=== PATIENT | female | born 1950 | race Caucasian/White ===

== ENCOUNTER → 2016-08-02 | Outpatient (CLI) | payer BC ==
[~2016-08-02] MED LIST: ASPI81TA25 PO; CALC-20 PO; HERB LAX PO; LEVO75TA PO; MULTTAB58 PO; PRM625 VA; PSYL48.59 PO; VITAMIN D PO
== END | disposition home or self-care (01) ==
LOC: C.MAMM 14:43
PROVIDERS: ATTEND Physician Assistant Medical
DX: M85.80 Other specified disorders of bone density and structure, unspecified site (principal); M85.832 Other specified disorders of bone density and structure, left forearm

== ENCOUNTER → 2016-09-16 | Outpatient (CLI) | payer BC ==
[~2016-09-16] MED LIST changes: -HERB LAX PO; -PSYL48.59 PO; -VITAMIN D PO
--- NOTE | 2016-09-17 08:09 | MAMMOGRAPHY REPORT ---
BILATERAL DIGITAL SCREENING MAMMOGRAM WITH CAD: 09/16/2016 TECHNIQUE: Current study was also evaluated with a Computer Aided Detection (CAD) system. Bilateral CC and MLO views were obtained. COMPARISON: Comparison is made to exams dated: 08/18/2015 mammogram, 08/14/2014 mammogram, 08/10/2013 m ammogram, 08/07/2012 mammogram, 08/13/2011 ultrasound, and 08/03/2011 mammogram - [facility]. BREAST COMPOSITION: The tissue of both breasts is heterogeneously dense, which may obscure small mas ses. FINDINGS: No suspicious masses, calcifications, or areas of architectural distortion are noted in ei ther breast. There has been no significant interval change compared to prior exams. Scattered bilater al benign-appearing calcifications are not significantly changed. IMPRESSION: ACR BI-RADS CATEGORY 2: BENIGN There is no mammographic evidence of malignancy. A 1 year screening mammogram is recommended. The pa tient will receive written notification of the results. Approximately 10% of breast cancers are not detected with mammography. A negative mammographic report should not delay biopsy if a clinically suggestive mass is present. Monet Bell M.D. /:09/16/2016 16:14:19 Food Production Supervisor: Iliana Gonzalez, [facility] letter sent: Normal 1/2 BI-RADS Code: ACR BI-RADS Category 2: Benign
== END | disposition home or self-care (01) ==
LOC: C.MAMM 15:57
PROVIDERS: ATTEND Obstetrics & Gynecology
DX: Z12.31 Encounter for screening mammogram for malignant neoplasm of breast (principal)

== ENCOUNTER → 2016-12-27 | Outpatient (CLI) | payer BC ==
[~2016-12-27] MED LIST changes: +HERB LAX PO; +PSYL48.59 PO; +VITAMIN D PO
== END | disposition home or self-care (01) ==
LOC: C.PAPS 16:35
PROVIDERS: ATTEND Obstetrics & Gynecology
DX: Z12.4 Encounter for screening for malignant neoplasm of cervix (principal)

== ENCOUNTER → 2016-12-29 | Outpatient (CLI) | payer BC, OTHER ==
[~2016-12-29] VITALS: Ht 160 cm; Wt 59.0 kg
[~2016-12-29] MED LIST changes: +ACETAMINOPHEN 500 MG TAB PO SCH; +BUPIVACAINE 0.25% 30 ML VIAL ONE; +BUPIVACAINE 0.5 % 5 MG/1 ML PF 10ML VIAL ONE; +BUPIVACAINE LIPOSOME 266 MG, BUPIVACAINE/EPINEPHRINE INJ 50 ML, SODIUM CHLORIDE 0.9% PF... INFIL SCH; +CEFAZOLIN 2000MG IV PUSH 10 ML IV SCH; +CHECK SCOPOLAMINE PATCH PLACEMENT SCH; +FAMOTIDINE 20 MG TAB PO SCH; +GABAPENTIN 300 MG CAP PO SCH; +LACTATED RINGER'S 1000ML 1,000 ML IV SCH; +LACTATED RINGER'S 1000ML 500 ML IV SCH; +LACTATED RINGER'S 1000ML IV SCH; +METOCLOPRAMIDE HCL 10 MG TAB PO SCH; +SCOPOLAMINE 1.5 MG TDSY TD SCH; +TRANEXAMIC ACID INJ 1,000 MG in SYRINGE 0 ML IV SCH
[2016-12-29 15:24] VITALS: Ht 160 cm; Wt 59.0 kg
--- NOTE | 2016-12-29 16:12 | PAT Medication Instructions ---
Service Date Dec 29, 2016. Current Home Medication List Aspirin (Aspir-Low), 81 MG PO Q2D Levothyroxine Sodium (Synthroid), 75 MCG PO QAM Multiple Vitamin (Multivitamin), 1 TAB PO Q2D Psyllium (Metamucil), 1 DOSE PO QAM [Herb Lax], 1 TAB PO QAM [Vitamin D], 1 TAB PO Q2D Medication Instructions For Your Scheduled Surgery - Hold the following medications 2 weeks prior to surgery: [Herb Lax], 1 TAB PO QAM - Hold the following medications the morning of surgery: Psyllium (Metamucil), 1 DOSE PO QAM Multiple Vitamin (Multivitamin), 1 TAB PO Q2D [Vitamin D], 1 TAB PO Q2D - Take the following medications the morning of surgery with a sip of water OTHERWISE NOTHING TO EAT OR DRINK AFTER MIDNIGHT: Levothyroxine Sodium (Synthroid), 75 MCG PO QAM Aspirin (Aspir-Low), 81 MG PO Q2D If you have any questions please call us at [phone] or [phone] or [phone]
--- NOTE | 2016-12-29 17:00 | DIAGNOSTIC IMAGING REPORT ---
CHEST PREADMISSION(PA/LAT) HISTORY: 66 years-old Female PAT preoperative exam without acute chest complaints. COMPARISON: None available TECHNIQUE: Frontal and lateral views of the chest FINDINGS: The cardiomediastinal and hilar silhouettes are within normal limits. There is no pneumothorax, pleural effusion, focal airspace consolidation or overt pulmonary edema. Bones of the chest are grossly intact. IMPRESSION: No acute cardiopulmonary process. The above report was generated using voice recognition software. It may contain grammatical, syntax or spelling errors. Electronically signed by: Benny Rodarte M.D. 12/29/2016 4:58 PM Dictated Date/Time: 12/29/2016 4:57 PM
[2016-12-29 17:17] LABS: BASO % 1.4 %; BASO ABS # 0.11 K/uL (0-0.2); EOS % 1.8 %; EOS ABS # 0.14 K/uL (0-0.5); HEMATOCRIT 38.7 % (37-47); HEMOGLOBIN 12.8 g/dL (12.0-16.0); IG# 0.02 K/uL (0.00-0.02); LYMPH % 29.9 %; LYMPH ABS # 2.38 K/uL (1.2-3.4); MEAN CELL VOLUME 90.6 fL (80-100); MEAN CORPUSCULAR HGB CONC 33.1 g/dl (32-36); MEAN PLATELET VOLUME 9.3 fL (7.4-10.4); MONO % 6.9 %; MONO ABS # 0.55 K/uL (0.11-0.59); NEUT % 59.7 %; NEUT ABS # 4.77 K/uL (1.4-6.5); PLATELET COUNT 261 K/uL (130-400); RED CELL DISTRIBUTION WIDTH CV 14.2 % (11.5-14.5); RED CELL DISTRIBUTION WIDTH SD 46.7 fL (36.4-46.3); WHITE BLOOD COUNT 7.97 K/uL (4.8-10.8)
[2016-12-29 17:21] LABS: CALCIUM 9.4 mg/dl (8.5-10.1); CREATININE 0.76 mg/dl (0.60-1.20); POTASSIUM 4.1 mmol/L (3.5-5.1)
--- NOTE | 2017-01-14 09:40 | HISTORY & PHYSICAL EXAMINATION ---
DATE OF ADMISSION: 01/17/2017 CHIEF COMPLAINT: Bilateral knee pain and discomfort, left side greater than right. HISTORY OF PRESENT ILLNESS: 66-year-old female who presents for surgical treatment of his left knee. She has a fairly long history of bilateral knee pain and discomfort, left side greater than right. We have been following for the past 6 years or so. The pain has gradually gotten worse. It is really starting to affect her quality of life. She gets aggravation of her knee where she has difficulty walking for the next day or two. It is fairly global pain throughout the knee. A little bit more than the medial side. It is increased with weightbearing. She has nighttime pain. She would like to have her knee replaced. PAST MEDICAL HISTORY: 1. Irregular heartbeat followed by Dr. Montiel without any intervention warranted. 2. Heart murmur. 3. Hypothyroidism. 4. Arthritis. PAST SURGICAL HISTORY: 1. Tonsillectomy. 2. Cyst removal from her ovary. ALLERGIES: Black rubber mix. CURRENT MEDICATIONS: Synthroid 75 mcg daily. SOCIAL HISTORY: 66-year-old female. She is . Does not smoke. No significant alcohol intake. FAMILY HISTORY: Negative for heart disease, diabetes, or cancer. REVIEW OF SYSTEMS: Negative for diabetes, neurological problems, vascular problems, bleeding disorders. She is on thyroid medicine for hypothyroidism. No history of DVT or PE. PHYSICAL EXAMINATION: GENERAL: Reveals elderly pleasant 66-year-old female. Looks to be in good health. HEENT: Benign. NECK: Supple. No lymphadenopathy. LUNGS: Clear to auscultation. HEART: Has a regular rate and rhythm. ABDOMEN: Soft, nontender, nondistended. EXTREMITIES: Grossly neurovascularly intact except as follows: Examination of the left knee reveals the patient walks with a significant limp on the left side. She has varus alignment to her knee. Moderate size joint effusion. She is tender over the medial joint line. Her knee is pretty stiff with range of motion of 10-15 degrees short of full extension to about 115 degrees of flexion. No instability. No pain with hip motion. X-RAYS: X-rays of the left knee were reviewed. She has advanced left knee DJD. She has complete loss of her medial joint space. She has got tibial femoral subluxation. She has a large cyst in the central aspect of her tibia. ASSESSMENT: 66-year-old female with advanced bilateral knee degenerative joint disease, left side more symptomatic than the right. She has failed conservative and surgical treatment, would like to have her left knee replaced. PLAN: We are going to take her to the operating room and do a left total knee replacement. The risks and benefits of this procedure were explained to the patient including but not limited to DVT, PE, , infection, neurological injury, vascular injury, bleeding problem, pain, limited range of motion, stiffness, failure to relieve her symptoms, incomplete relief of symptoms, need for further surgery in the future, fracture, leg length inequality, nerve palsy, persistent pain, etc. The patient understands and desires to proceed. Informed consent was obtained.
== END | disposition home or self-care (01) ==
LOC: C.LAB 08:00 → EDSTATUS 01-17 13:15
PROVIDERS: ATTEND Orthopaedic Surgery Sports Medicine
DX: I47.1 Supraventricular tachycardia (principal)

== ENCOUNTER → 2017-09-19 | Outpatient (CLI) | payer BC ==
[~2017-09-19] MED LIST changes: -ACETAMINOPHEN 500 MG TAB PO SCH; -BUPIVACAINE 0.25% 30 ML VIAL ONE; -BUPIVACAINE 0.5 % 5 MG/1 ML PF 10ML VIAL ONE; -BUPIVACAINE LIPOSOME 266 MG, BUPIVACAINE/EPINEPHRINE INJ 50 ML, SODIUM CHLORIDE 0.9% PF... INFIL SCH; -CALC-20 PO; -CEFAZOLIN 2000MG IV PUSH 10 ML IV SCH; -CHECK SCOPOLAMINE PATCH PLACEMENT SCH; -FAMOTIDINE 20 MG TAB PO SCH; -GABAPENTIN 300 MG CAP PO SCH; -LACTATED RINGER'S 1000ML 1,000 ML IV SCH; -LACTATED RINGER'S 1000ML 500 ML IV SCH; -LACTATED RINGER'S 1000ML IV SCH; -METOCLOPRAMIDE HCL 10 MG TAB PO SCH; -PRM625 VA; -SCOPOLAMINE 1.5 MG TDSY TD SCH; -TRANEXAMIC ACID INJ 1,000 MG in SYRINGE 0 ML IV SCH
--- NOTE | 2017-09-20 15:23 | MAMMOGRAPHY REPORT ---
BILATERAL DIGITAL SCREENING MAMMOGRAM TOMOSYNTHESIS WITH CAD: 09/19/2017 CLINICAL HISTORY: Routine screening. Patient reported a palpable right breast lump during the screeni ng examination. TECHNIQUE: The study was acquired using full field digital technology and interpreted from soft copy. Breast tomosynthesis in addition to standard 2D mammography was performed. Current study was also ev aluated with a Computer Aided Detection (CAD) system. COMPARISON: Comparison is made to exams dated: 09/16/2016 mammogram, 08/18/2015 mammogram, 08/14/2014 m ammogram, 08/10/2013 mammogram, 08/07/2012 mammogram, and 02/23/2012 mammogram - [facility] nter. BREAST COMPOSITION: The tissue of both breasts is heterogeneously dense, which may obscure small mass es. FINDINGS: The breast parenchymal pattern is similar to prior mammograms. There are a few scattered b enign rim calcifications and minimal vascular calcification in the breasts. A triangular palpable skin marker was placed on the right upper outer breast, denoting the area of pa lpable concern pointed out by the patient. Although there is no new suspicious mass, asymmetry, area of distortion or suspicious calcification in the area of palpable concern, or elsewhere throughout t he remainder of both breasts, standard of care for a new palpable lump is mammogram plus targeted ult rasound and therefore additional targeted right breast ultrasound recommended. IMPRESSION: ACR BI-RADS CATEGORY 0: INCOMPLETE EVALUATION: NEED ADDITIONAL IMAGING EVALUATION 1. Stable bilateral mammograms, without mammographic evidence of malignancy. 2. However, the patient reported a palpable lump in the right upper outer quadrant. Standard of care is mammogram plus targeted ultrasound. Therefore, additional targeted right breast ultrasound is re commended, as some breast cancers may be mammographically occult. The patient will be called to schedule an appointment. Some breast cancers are not detected with mammography. A negative mammographic report should not angie y biopsy if a clinically suggestive mass is present. Eli Hernadez M.D. ay/:09/19/2017 16:52:02 Railroad Operating Engineer: Iliana Gonzalez, [facility] letter sent: Addl Imaging 0 BI-RADS Code: ACR BI-RADS Category 0: Incomplete Evaluation: Need Additional Imaging Evaluation
== END | disposition home or self-care (01) ==
LOC: C.MAMM 15:29
PROVIDERS: ATTEND Obstetrics & Gynecology
DX: Z12.31 Encounter for screening mammogram for malignant neoplasm of breast (principal); N63.11 Unspecified lump in the right breast, upper outer quadrant

== ENCOUNTER → 2017-09-26 | Outpatient (CLI) | payer BC ==
--- NOTE | 2017-09-26 15:12 | MAMMOGRAPHY REPORT ---
ULTRASOUND OF RIGHT BREAST: 09/26/2017 CLINICAL HISTORY: 67-year-old woman describes to right breast lumps. The larger lump, slightly smalle r than the size of a quarter, is located in the 12:00 axis but this feels similar to other lumpiness of the left breast that is chronic. A newer smaller lump slightly larger than the size of the BB is n oted in the 10:00 periareolar right breast. No skin erythema or nipple discharge. Screening mammograp hy performed 09/19/2017 did not demonstrate any new suspicious abnormalities in the right breast. COMPARISON: Comparison is made to exams dated: 09/19/2017 mammogram, 09/16/2016 mammogram, 08/18/2015 m ammogram, 08/14/2014 mammogram, 08/10/2013 mammogram, and 08/07/2012 mammogram - [facility] enter. FINDINGS: Targeted ultrasound was performed in the areas of concern pointed out by the patient in the right breast 10:00 periareolar and 12:00 periareolar regions. On palpation, there is a plateau of d ense tissue in the 12:00 right breast, and a tiny nodular BB sized lump in the 10:00 periareolar righ t breast. Targeted ultrasound performed directly over these areas demonstrates no suspicious solid o r cystic mass. There is mild benign duct ectasia in the 10:00 periareolar and 12:00 axes of the righ t breast. IMPRESSION: ACR BI-RADS CATEGORY 2: BENIGN 1. There is no targeted sonographic evidence of malignancy or other suspicious abnormalities to expl ain the palpable lumps described by the patient, and the 12:00 and 10:00 periareolar axes. Given hermelinda t no mammographic abnormality was detected either, would consider these lumps benign. However, matthew nued clinical follow-up and clinical monitoring is recommended, as biopsy of a clinically suspicious mass should not be precluded by negative imaging. 2. Otherwise recommend routine screening mammography in 1 year.(09/27/2018) These results and recommendations were discussed with the patient at the time of the exam. Eli Hernadez M.D. ay/:09/26/2017 13:34:05 Box Bender: Iliana Gonzalez, [facility] letter sent: Normal 1/2 BI-RADS Code: ACR BI-RADS Category 2: Benign
== END | disposition home or self-care (01) ==
LOC: C.MAMM 13:05
PROVIDERS: ATTEND Obstetrics & Gynecology
DX: R92.8 Other abnormal and inconclusive findings on diagnostic imaging of breast (principal); N63.10 Unspecified lump in the right breast, unspecified quadrant

== ENCOUNTER 2018-08-25 10:07 | Inpatient (IN) ==
--- NOTE | 2018-08-02 15:44 | PAT Medication Instructions ---
Medication Instructions Date of Service August 02, 2018 Continue as directed Herb Lax 1 tab PO DAILY Metamucil 1 tbsp PO BID [place]-3 2 cap PO DAILY Premarin 1 dose VAGINAL UD PRN collagen (bovine) 1 applic TOPICAL DAILY multivitamin 1 tab PO 2XWK Probiotic 1 cap PO DAILY levothyroxine [Synthroid] 75 mcg PO QAM ASK your surgeon for instructions Premarin 1 dose VAGINAL UD PRN STOP taking 2 weeks before surgery (or as soon as possible if surgery is within 2 weeks) [place]-3 2 cap PO DAILY STOP taking 24 hours before surgery collagen (bovine) 1 applic TOPICAL DAILY DO NOT take the morning of surgery Herb Lax 1 tab PO DAILY Metamucil 1 tbsp PO BID multivitamin 1 tab PO 2XWK Probiotic 1 cap PO DAILY Take morning of surgery With a small sip of water, OTHERWISE NOTHING TO EAT OR DRINK AFTER MIDNIGHT: levothyroxine [Synthroid] 75 mcg PO QAM Other Notes If you have any questions please call us at [phone] or [phone] or [phone] or [phone]
--- NOTE | 2018-08-02 15:47 | Anesthesiology Consultation ---
Date of Service August 02, 2018 Assessment & Plan (1) Encounter for pre-operative examination: - S/P colonoscopy: 05/30/18: MAC sedation at [facility] Chart Review Chart Review: Acceptable Risk for Surgery and Patient seen in Pre Admission Testing Teaching & Discussion Pre-Anesthesia Teaching/Discussion Notes: Instructed NPO after midnight before surgery,except medications with 15 cc of water. Medication instructions provided according to the PAT guidelines. History Surgery Operation Date: 08/25/18 08:50 Proposed Procedures p Left Total Knee Replacement - Angel Jennings MD Height/Weight Height: 5 ft 2 in Weight: 57.4 kg Allergies Allergy/AdvReac Type Severity Reaction Status Date / Time azithromycin [From Zithromax] Allergy Severe DIFFICULTY Verified 08/02/18 15:51 WALKING/SPEAKING; HEARD A "HUMMING SOUND" adhesive tape Allergy Mild BandAid - Verified 08/02/18 15:51 PRURITIS bee venom protein (honey bee) Allergy Unknown SWELLING Verified 08/02/18 15:51 diazepam AdvReac Unknown N/V Verified 07/27/18 13:42 Unclassified Drugs Allergy Unknown BLACK Uncoded 08/02/18 15:51 RUBBER MIX- PRURITIS Medications Home Medications Medication Instructions Recorded Confirmed Last Taken Herb Lax 1 tab PO DAILY 03/31/18 07/27/18 Unknown Metamucil 1 tbsp PO BID 03/31/18 07/27/18 07/27/18 [place]-3 2 cap PO DAILY 03/31/18 07/27/18 05/26/18 Premarin 1 dose VAGINAL UD PRN 03/31/18 07/27/18 Unknown collagen (bovine) 1 applic TOPICAL DAILY 03/31/18 07/27/18 05/28/18 multivitamin 1 tab PO 2XWK 03/31/18 07/27/18 05/26/18 Probiotic 1 cap PO DAILY 05/23/18 07/27/18 Unknown levothyroxine [Synthroid] 75 mcg PO QAM 07/27/18 07/27/18 07/27/18 Past Medical History Medical History Constipation Degenerative disc disease Deviated septum Dysphagia CHRONIC, STABLE WITH CERTAIN FOOD TRIGGERS X 10 YEARS Hypothyroidism Osteoarthritis Osteoporosis Salivary gland disturbance OCCASIONAL LEFT SIDED BLOCKAGE; NO CURRENT ISSUES Tinnitus of both ears Exercise / Class Metabolic Activity II 4-5 Yardwork/Stairs/Walk up hill Past Family History Family History Family/Other Family history of diabetes mellitus cousins Aunt Family history of breast cancer Past Surgical History Surgical History History of colonoscopy History of detached retina repair RIGHT EYE History of dilatation and curettage History of ovarian cystectomy History of tonsillectomy History of wisdom tooth extraction Past Anesthesia History No Hx of Anesthesia Complications (EXCEPT PONV) and No Family Hx of Anesthesia Complications History of PONV History of PONV and Hx of Motion Sickness Social History Smoking Status: Never smoker Do You Dip or Chew Tobacco: No Hx Alcohol Use: No Hx Substance Use: No substance use type: does not use Review of Systems Hx of heart racing s/p unremarkable holter report workup per patient; no recent issues. Patient denies chest pain, shortness of breath, dyspnea on exertion, cough, wheezing. Physical Exam Vital Signs VITALS BP 116/70 P 62 TEMP 97.7 SP02 99%RA RESP 16 PHYSICAL Full neck and c-spine range of motion. Full TMJ range of motion. TMD 2.5 finger breaths (small chin) Mallampati Score 3 Dentition: intact, permanent overlays on sides/molars Lungs: clear throughout to auscultation Cardiac: regular rate and rhythm, no murmurs noted Spine: normal Carotid arteries: negative bruit Extremities: no edema Testing Laboratory Results 08/02/18 16:05 08/02/18 16:05 08/02/18 08/02/18 16:05 16:05 PT 10.4 INR 1.0 APTT 23.5 Blood Type O Negative Antibody Screen NEGATIVE Electrocardiogram Date: 08/02/18 SB at 58bpm. NS STA. Chest X-Ray Date: 08/02/18 Atherosclerosis of the aortic arch. No acute cardiopulmonary disease.
[2018-08-02 16:33] LABS: Basophils # (auto) 0.06 K/uL (0-0.2); Basophils % (auto) 0.8 %; Eosinophils # (auto) 0.17 K/uL (0-0.5); Eosinophils % (auto) 2.3 %; Hematocrit (blood only) 40.3 % (37-47); Hemoglobin 13.6 g/dL (12.0-16.0); Immature Granulocytes # (auto) 0.01 K/uL (0.00-0.02); Immature Granulocytes % (auto) 0.1 %; Lymphocytes # (auto) 2.14 K/uL (1.2-3.4); Lymphocytes % (auto) 28.9 %; Mean Corpuscular Hgb Conc 33.7 g/dL (32-36); Mean Platelet Volume 9.8 fL (7.4-10.4); Monocytes # (auto) 0.57 K/uL (0.11-0.59); Monocytes % (auto) 7.7 %; Neutrophils # (auto) 4.46 K/uL (1.4-6.5); Neutrophils % (auto) 60.2 %; Platelet Count 244 K/uL (130-400); RDW Coefficient of Variation 13.3 % (11.5-14.5); RDW Standard Deviation 43.9 fL (36.4-46.3); Red Blood Count 4.48 M/uL (4.2-5.4); White Blood Count 7.41 K/uL (4.8-10.8)
--- NOTE | 2018-08-02 16:34 | XRay Report ---
XR chest Pre-admission PA/Lat CLINICAL HISTORY: 68 years-old Female presenting with preoperative evaluation. TECHNIQUE: PA and lateral views of the chest were obtained. COMPARISON: 12/29/2016. FINDINGS: Atherosclerosis of the aortic arch. Cardiac silhouette normal in size. Pleural parenchymal scarring a t the apices. Lungs and pleural spaces otherwise clear. Degenerative changes of the thoracic spine. U pper abdomen normal. IMPRESSION: 1. No acute cardiopulmonary disease. Electronically signed by: Barney Perales M.D. 08/02/2018 4:33 PM
[2018-08-02 16:41] LABS: BUN Creatinine Ratio 36.6 (10-20); Calcium 9.6 mg/dl (8.5-10.1); Creatinine Clr Calc Pharmacy 59.1 ml/min; Est GFR (African American) 98.8; Est GFR (Non-African American) 85.2; Potassium 4.3 mmol/L (3.5-5.1)
[2018-08-02 16:51] LABS: Partial Thromboplastin Ratio 0.9; Partial Thromboplastin Time 23.5 Seconds (21.0-31.0); Prothrombin Time 10.4 Seconds (9.0-12.0)
--- NOTE | 2018-08-19 20:27 | History and Physical Report ---
DATE OF ADMISSION: CHIEF COMPLAINT: Bilateral knee pain and discomfort, left side greater than the right. HISTORY OF PRESENT ILLNESS: This patient is a 68-year-old white female who presents for surgical treatment of her left knee. She actually scheduled her left knee for about a year and a half ago, but had to cancel. She apparently got some degree of pneumonia per her report. The knee has been bothering her for quite some time. It has been bothering her for at least the past 8 years. She has gotten more debilitating over time. It is global pain. She has a limited walking tolerance. Both knees hurt, but the left knee is worse than the right. She has difficulty going up and down steps. She has become less active as a result of pain. She has got all conservative treatment and would like to proceed with left knee replacement. PAST MEDICAL HISTORY: Significant for, 1. Elevated cholesterol. 2. Heart murmur. 3. Occasional irregular heartbeat. 4. Hypothyroidism. 5. Neck and back pain. PAST SURGICAL HISTORY: Includes, 1. Tonsillectomy. 2. Cyst removed from her ovary. ALLERGIES: VALIUM AND Z-JA. CURRENT MEDICINES: Include, 1. Synthroid - once a day. 2. Metamucil 3 times a day. SOCIAL HISTORY: This patient is a 68-year-old female. She is . Does not smoke. No history of alcohol intake. FAMILY HISTORY: Negative for heart disease, diabetes and cancer. REVIEW OF SYSTEMS: Negative for diabetes, neurologic problems, vascular problems or bleeding disorders. Denies any chest pain or shortness of breath. She does have some anxiety issues. PHYSICAL EXAMINATION: GENERAL: Reveals a thin, pleasant, middle-aged female. HEENT: Benign. NECK: Supple. No lymphadenopathy. LUNGS: Clear to auscultation. HEART: Regular rate and rhythm. ABDOMEN: Soft, nontender and nondistended. EXTREMITIES: Grossly neurovascularly intact except as follows: Examination of both lower extremities reveals the patient ambulates independently. She has gotten varus alignment to both knees. With weightbearing, she has a varus thrust bilaterally. Examination of left knee reveals tenderness from the medial joint line. Range of motion about 10 degrees short of full extension and 110 degrees of flexion. There is no instability. No pain with hip motion. Examination of the right knee reveals varus deformity. She has a varus thrust. She is tender over the medial joint line with bony hypertrophy. Range of motion of 10-110. No instability. She is neurologically intact. X-RAYS: X-rays of both knees reveal advanced bilateral knee DJD. X-rays of left knee specifically showed advanced complete loss of her medial joint space. She has subchondral sclerosis. She has some tibial femoral subluxation. Less severe degenerative changes on the right side. ASSESSMENT: This patient is a 68-year-old female with advanced bilateral knee degenerative joint disease. The left side is a bit worse than right. She has failed conservative treatment. She would like to proceed with left knee replacement. PLAN: We are going to take her to the operating room and do a left total knee replacement. The risks and benefits of this procedure were explained to the patient including but not limited to deep venous thrombosis, pulmonary embolism, , infection, neurological injury, vascular injury, bleeding problem, pain, limited range of motion, stiffness, failure to relieve symptoms, incomplete relief of symptoms, need for further surgery in future, fracture, leg length inequality, nerve palsy, etc. The patient understands. Informed consent obtained. As far as discharge plans, she is planning to be discharged to home using [facility] home health program. ABDULKADIR
[~2018-08-25 10:07] MED LIST changes: +ACETAMINOPHEN 500 MG TAB PO SCH; -ASPI81TA25 PO; +BUPIVACAINE 0.5 % 5 MG/1 ML PF 10ML VIAL ONE; +BUPIVACAINE LIPOSOME/PF 266 MG, BUPIVACAINE/EPINEPHRINE 50 ML, SODIUM CHLORIDE 0.9% 30 ... INFIL SCH; +CEFAZOLIN 2000MG 2,000 MG/15 ML SYR IV SCH; +FAMOTIDINE 20 MG TAB PO SCH; +GABAPENTIN 300 MG CAP PO SCH; -HERB LAX PO; -LEVO75TA PO; +LR 500ML BOLUS, THEN 15ML/HR IV SCH; +LR 60ML/HR IV SCH; +METOCLOPRAMIDE HCL 10 MG TABLET PO SCH; -MULTTAB58 PO; -PSYL48.59 PO; +ROPIVACAINE 0.5% 5 MG/ML 30 ML VIAL ONE; +SCOPOLAMINE 1.5 MG TDSY TD SCH; +TRANEXAMIC ACID 1,000 MG **IV Intra-op IV SCH; -VITAMIN D PO
--- NOTE | 2018-08-25 10:48 | History & Physical Bridge Note ---
Date of Service August 25, 2018 History & Physical Bridge Note I have examined the patient, reviewed the History & Physical and in the interval since the performance of the History & Physical I have noted the following changes of clinical significance: no changes noted
[2018-08-25] MEDS ORDERED: PROPOFOL IV EMULSION 10 MG/ML 20 ML VIAL IV ONE ×2 (10:54→14:43)
[2018-08-25] MEDS ORDERED: fentaNYL citrate 100 MCG/2 ML VIAL ONE (10:54)
[2018-08-25] MEDS ORDERED: MIDAZOLAM HCL 1 MG/ML 2ML VIAL ONE ×2 (10:54)
[2018-08-25] MEDS ORDERED: LIDOCAINE HCL 2% 2 ML VIAL/AMP(20MG/ML) INFIL ONE (10:54)
[2018-08-25] MEDS ORDERED: ONDANSETRON INJ 2 MG/ML 2 ML VIAL ONE (10:54)
[2018-08-25] MEDS ORDERED: DEXAMETHASONE SOD INJ 4 MG/ML VIAL ONE (10:54)
[2018-08-25] MEDS ORDERED: SODIUM CHLORIDE 0.9% PF 50 ML VIAL ONE (11:16)
[2018-08-25] MEDS ORDERED: BUPIVACAINE 0.25% 30 ML VIAL ONE (11:17)
[2018-08-25] MEDS ORDERED: BUPIVACAINE LIPOSOME 1.3% 266 MG/20 ML VIAL ONE (11:17)
[2018-08-25] MEDS ORDERED: BACITRACIN INJ 50,000 UNIT VIAL ONE (11:17)
[2018-08-25] MEDS ORDERED: EPINEPHrine INJ 1 MG/ML AMP ONE (11:17)
[2018-08-25] MEDS ORDERED: ePHEDrine sulfate 50 MG/ML AMP IV PRN (11:46)
[2018-08-25] MEDS ORDERED: ONDANSETRON INJ 2 MG/ML 2 ML VIAL IV PRN ×2 (11:46→15:21)
[2018-08-25] MEDS ORDERED: KETOROLAC 30 MG/ML VIAL IV PRN (11:46)
[2018-08-25] MEDS ORDERED: ATROPINE SULFATE 0.1 MG/ML 10ML SYR IV PRN (11:46)
[2018-08-25] MEDS ORDERED: PHENYLEPHRINE 100MCG/ML 5ML SYR IV PRN (11:46)
[2018-08-25] MEDS ORDERED: HYDROmorphone INJ 1 MG/ML SYRINGE IV PRN (11:46)
--- NOTE | 2018-08-25 14:30 | Post Operative Brief Note ---
Immediate Post Op Note v1 Date of Surgery August 25, 2018 Pre & Post Diagnosis Operation Date: 08/25/18 12:30 Pre-Op Diagnosis: LEFT KNEE DEGENERATIVE JOINT DISEASE W/KNEE PAIN Post-Op Diagnosis: LEFT KNEE DEGENERATIVE JOINT DISEASE W/KNEE PAIN Procedure Operation Date: 08/25/18 12:30 Actual Procedures p Left Total Knee Replacement(Left) - Angel Jennings MD Surgeon Angel Jennings MD Multifocal Lens Assembler Tracey, PAC Estimated Blood Loss 50 Findings Consistent with Post-Op Diagnosis Fluids 2000 cc Specimens Left Knee Drains Kwong Catheter Complications none Disposition Accompanied Patient To Recovery: No Disposition: Recovery Room
--- NOTE | 2018-08-25 14:53 | XRay Report ---
XR knee LT 2V routine CLINICAL HISTORY: Postoperative evaluation. COMPARISON: Left knee radiographs July 20, 2018. FINDINGS: Alignment of the total left knee arthroplasty is anatomic. There is no fracture or unexpec michael radiopaque foreign body. There are skin cornel. IMPRESSION: Expected findings following total left knee arthroplasty. Electronically signed by: Curtis Joyce M.D. 08/25/2018 2:51 PM
--- NOTE | 2018-08-25 15:14 | Anesthesiology Progress Note ---
Date of Service August 25, 2018 Anesthesia Post Procedure Vital Signs Vital Signs: Temp Pulse Resp BP Pulse Ox 08/25/18 15:10 36.4 C L 61 16 95/52 L 99 08/25/18 15:00 68 16 100/54 L 99 08/25/18 14:50 64 16 88/45 L 100 08/25/18 14:40 36.2 C L 70 16 90/49 L 100 08/25/18 10:47 36.5 C 74 18 116/53 L 98 08/25/18 10:17 36.5 C 74 18 116/53 L 98 Transfer of Care Handoff Completed per policy Notes Mental Status: alert / awake / arousable and participated in evaluation Patient Amnestic to Procedure: Yes Nausea / Vomiting: adequately controlled Pain: adequately controlled Airway Patency, RR, SpO2: stable & adequate BP & HR: stable & adequate Hydration State: stable & adequate Anesthetic Complications: no major complications apparent and Pt Satisfied with anesthetic care
[2018-08-25] MEDS ORDERED: METOCLOPRAMIDE HCL INJ 5 MG/ML 2 ML VIAL IV PRN (15:21)
[2018-08-25] MEDS ORDERED: MULTIVITAMIN TAB PO SCH (15:21)
[2018-08-25] MEDS ORDERED: OXYCODONE HCL IR 5 MG TAB (IMMEDIATE RELEASE) PO PRN (15:21)
[2018-08-25] MEDS ORDERED: MAGNESIUM HYDROXIDE SUSP 30 ML UDC PO PRN (15:21)
[2018-08-25] MEDS ORDERED: HYDROmorphone INJ 0.5 MG/0.5 ML SYR IV PRN (15:21)
[2018-08-25] MEDS ORDERED: ALUMINUM/MAGNESIUM SUSP 30 ML UDC PO PRN (15:21)
[2018-08-25] MEDS ORDERED: BISACODYL 10 MG SUPP PR PRN (15:21)
[2018-08-25] MEDS ORDERED: NALOXONE HCL 0.4 MG/1 ML VIAL/CARP IV PRN (15:21)
[2018-08-25] MEDS ORDERED: PREMARIN VAG CRM 14 APPLN/30 GM TUBE PV PRN (15:21)
[2018-08-25] MEDS ORDERED: SODIUM CHLORIDE 0.9% 1000ML 1,000 ML IV SCH (15:30)
[2018-08-25] MEDS: CHECK SCOPOLAMINE PATCH PLACEMENT SCH ×2 (15:44→23:50)
[2018-08-25] MEDS: KETOROLAC TROMETHAMINE 15 MG/ML VIAL IV SCH ×2 (15:44→21:53)
[2018-08-25] MEDS: ASCORBIC ACID 500 MG TAB PO SCH (17:49)
[2018-08-25] MEDS: FERROUS GLUCONATE 324 MG TAB PO SCH (17:49)
[2018-08-25] MEDS ORDERED: TRANEXAMIC ACID 1,000 MG in 0.9 % SODIUM CHLORIDE 100 ML IV SCH (20:30)
[2018-08-25] MEDS ORDERED: TAPENTADOL HCL ER 50 MG TABCR PO SCH (21:00)
[2018-08-25] MEDS: SENNA 8.6 MG TAB PO SCH (21:52)
[2018-08-25] MEDS: CEFAZOLIN 1000MG 1,000 MG/7.5 ML SYR IV SCH (21:52)
[2018-08-25] MEDS: DOCUSATE SODIUM 100 MG CAP PO SCH (21:52)
[2018-08-25] MEDS: ASPIRIN 81 MG ECTAB PO SCH (21:52)
[2018-08-25] MEDS: ACETAMINOPHEN 500 MG TAB PO SCH (21:53)
[2018-08-25] MEDS: PSYLLIUM 58.6% POWDER PACKET PO SCH (21:53)
[2018-08-26] MEDS ORDERED: NALOXONE HCL 0.4 MG/1 ML VIAL/CARP IV STA (03:20)
[2018-08-26] MEDS ORDERED: SODIUM CHLORIDE 0.9% 1000ML 1,000 ML IV ONE (03:20)
[2018-08-26] MEDS ORDERED: ATROPINE SULFATE 0.1 MG/ML 10ML SYR IV STA (03:23)
[2018-08-26 03:57] LABS: Basophils # (auto) 0.03 K/uL (0-0.2); Basophils % (auto) 0.3 %; Eosinophils # (auto) 0.02 K/uL (0-0.5); Eosinophils % (auto) 0.2 %; Hematocrit (blood only) 31.2 % (37-47); Hemoglobin 10.4 g/dL (12.0-16.0); Immature Granulocytes # (auto) 0.01 K/uL (0.00-0.02); Immature Granulocytes % (auto) 0.1 %; Lymphocytes # (auto) 1.38 K/uL (1.2-3.4); Lymphocytes % (auto) 15.5 %; Mean Corpuscular Hgb Conc 33.3 g/dL (32-36); Mean Corpuscular Volume 89.7 fL (80-100); Mean Platelet Volume 9.8 fL (7.4-10.4); Monocytes # (auto) 0.72 K/uL (0.11-0.59); Monocytes % (auto) 8.1 %; Neutrophils # (auto) 6.75 K/uL (1.4-6.5); Neutrophils % (auto) 75.8 %; Platelet Count 180 K/uL (130-400); RDW Coefficient of Variation 13.4 % (11.5-14.5); RDW Standard Deviation 43.8 fL (36.4-46.3); Red Blood Count 3.48 M/uL (4.2-5.4); White Blood Count 8.91 K/uL (4.8-10.8)
[2018-08-26 04:09] LABS: Partial Thromboplastin Ratio 0.9; Partial Thromboplastin Time 24.4 Seconds (21.0-31.0)
[2018-08-26 04:14] LABS: Albumin Level 2.7 gm/dl (3.4-5.0); BUN Creatinine Ratio 17.2 (10-20); Calcium 8.2 mg/dl (8.5-10.1); Creatinine Clr Calc Pharmacy 65.4 ml/min; Est GFR (African American) 105.9; Est GFR (Non-African American) 91.4; Potassium 4.1 mmol/L (3.5-5.1)
[2018-08-26 04:25] LABS: Bilirubin,Total 0.3 mg/dl (0.2-1); Globulin 2.7 gm/dl (2.5-4.0); Total Protein 5.4 gm/dl (6.4-8.2)
[2018-08-26] MEDS: KETOROLAC TROMETHAMINE 15 MG/ML VIAL IV SCH ×4 (04:36→21:28)
[2018-08-26] MEDS: ACETAMINOPHEN 500 MG TAB PO SCH ×3 (05:23→21:28)
[2018-08-26] MEDS: CEFAZOLIN 1000MG 1,000 MG/7.5 ML SYR IV SCH (05:24)
--- NOTE | 2018-08-26 05:52 | Hospitalist Consultation ---
Date of Consultation August 26, 2018 Assessment & Plan (1) Hypotension: Final Assessment and Recommendations as follows : Hypotension likely secondary to symptomatic bradycardia likely secondary to medications ([id number] Tapentadol in an opioid alex patient, Scopolamine) improved hemodynamic, neurolologic status after fluid bolus, IV Atropine, Narcan administration; Scopolamine patch removal) Rule out primary arrhythmia pathology (hx irregular heartbeat as per records requiring Holter monitoring in the past) Rule out valvular pathology (hx heart murmur as per records) Hypothyroidism, euthyroid as of today's TSH Postop anemia PCU transfer to monitor for arrhythmias Appropriate to hold [id number] Tapentadol, cautious PRN narcotic administration TTE RE bradycardia Atropine as needed for symptomatic bradycardia Trend H&H, transfuse PRBC if hemoglobin less than 7 and/or for symptomatic anemia Case discussed with Dr. Haddad who is in agreement with the plan of care. Total critical time was 40 minutes. Thank you very much for this consultation. Dr. Andrew will follow patient's progress. History of Present Illness Reason for Consultation: Hypotension, bradycardia Requesting Physician: Dr. Haddad Attending Physician: Angel Jennings MD History of Present Illness PCP : Dr. Milagro Gusman History obtained from patient and records. Medical history significant for occasional irregular heartbeat as per records, history of mitral valve disorder as per records hyperlipidemia, hypothyroidism, osteoarthritis. Patient underwent elective left knee surgery for arthritis yesterday. Tolerable postop pain. Episodic bradycardia, CR 50s yesterday afternoon. SBP noted to be 80s after midnight despite ongoing IVF. Cardiac rate 45 at the lowest around 3 AM. Patient noted to be drowsy and disoriented by RN. Both lower extremities noted to be weak. SBP 123/68, pulse rate 65, improved mentation, motor activity following fluid bolus, IV Atropine, Narcan administration and removal of Scopolamine patch. Patient currently more awake, feels much better. Distressed about swallowing difficulty with dry mouth, throat. Admits to feeling somewhat confused, talking funny. Patient denies chest pain, S OB. Medical History as above Surgical History : Tonsillectomy adenoidectomy, knee surgery, eye surgery, vaginal cyst removal Family History : Heart disease, diabetes, breast cancer, thyroid disease Personal/Social history : Non-smoker, no EtOH intake, retired [employer] employee Allergies Allergy/AdvReac Type Severity Reaction Status Date / Time azithromycin [From Zithromax] Allergy Severe DIFFICULTY Verified 08/25/18 10:55 WALKING/SPEAKING; HEARD A "HUMMING SOUND" adhesive tape Allergy Mild BandAid - Verified 08/25/18 10:55 PRURITIS bee venom protein (honey bee) Allergy Unknown SWELLING Verified 08/25/18 10:55 diazepam AdvReac Unknown N/V Verified 08/25/18 10:55 Unclassified Drugs Allergy Unknown BLACK Uncoded 08/02/18 15:51 RUBBER MIX- PRURITIS Home Medications Home Medications Medication Instructions Recorded Confirmed Type Herb Lax 1 tab PO DAILY 03/31/18 08/25/18 History Metamucil 1 tbsp PO BID 03/31/18 07/27/18 History [facility]-3 2 cap PO DAILY 03/31/18 08/25/18 History Premarin 1 dose VAGINAL UD PRN 03/31/18 08/25/18 History collagen (bovine) 1 applic TOPICAL DAILY 03/31/18 08/25/18 History multivitamin 1 tab PO 2XWK 03/31/18 08/25/18 History Probiotic 1 cap PO DAILY 05/23/18 08/25/18 History levothyroxine [Synthroid] 75 mcg PO QAM 07/27/18 07/27/18 History acetaminophen [Tylenol Extra 1,000 mg PO Q8 30 Days #180 tab 08/25/18 Rx Strength] aspirin [Ecotrin Low Strength] 81 mg PO BID 45 Days #90 tab 08/25/18 Rx ferrous gluconate 324 mg PO BIDM 30 Days #60 tab 08/25/18 Rx tramadol 50 mg PO Q6H PRN #15 tab 08/27/18 Rx Patient History Medical History Constipation Degenerative disc disease Deviated septum Dysphagia CHRONIC, STABLE WITH CERTAIN FOOD TRIGGERS X 10 YEARS Hypothyroidism Osteoarthritis Osteoporosis Salivary gland disturbance OCCASIONAL LEFT SIDED BLOCKAGE; NO CURRENT ISSUES Tinnitus of both ears Surgical History History of colonoscopy History of detached retina repair RIGHT EYE History of dilatation and curettage History of ovarian cystectomy History of tonsillectomy History of wisdom tooth extraction Family History Family/Other Family history of diabetes mellitus cousins Aunt Family history of breast cancer Social History Preferred Language: Swedish Communication Ability: Effective Chief Investigator Required: No Beliefs That Will Affect Care: Anabaptism Anabaptism Beliefs: PRESYBETERIAN Current Living Situation: Spouse Other Information That Helps Us Care for You: No Feels Safe at Home: Yes Smoking Status: Never smoker Do You Dip or Chew Tobacco: No Second Hand Exposure: No Hx Alcohol Use: No Hx Substance Use: No Review of Systems Review of Systems: As per HPI, all 10 systems reviewed, all other ROS negative Physical Exam Physical Exam: GENERAL: Slightly anxious, occasional stuttering, occasional slowed response to questions, looks younger for stated age, no respiratory distress SKIN: Pallor, warm HEENT: Pale palpebral conjunctivae, no ptosis, dry buccal mucosa NECK : Supple, no tenderness CHEST : CTA, no tenderness HEART : Bradycardic, no obvious murmurs ABDOMEN: Soft, nontender EXTREMITIES : Dressing on the LLE, no other conspicuous deformities noted NEUROLOGIC : Coherent, occasional slowed response to questions, no facial asymmetry, gait and stance not assessed Results & Data Vital Signs (Past 12 Hours) Vital Signs Temp Pulse Pulse Resp BP BP Pulse Ox 08/26/18 04:10 65 123/68 100 08/26/18 02:49 90/48 L 08/26/18 02:46 36.6 C 46 L 14 80/48 L 95 08/25/18 23:43 36.5 C 56 L 12 84/47 L 85/48 L 97 08/25/18 18:20 36.2 C L 16 105/62 95 Laboratory Results Laboratory Results WBC 8.91 K/uL (4.8-10.8) 08/26/18 03:48 RBC 3.48 M/uL (4.2-5.4) L 08/26/18 03:48 Hgb 10.4 g/dL (12.0-16.0) L 08/26/18 03:48 Hct 31.2 % (37-47) L 08/26/18 03:48 MCV 89.7 fL (80-100) 08/26/18 03:48 MCH 29.9 pg (25-34) 08/26/18 03:48 MCHC 33.3 g/dL (32-36) 08/26/18 03:48 RDW Std Deviation 43.8 fL (36.4-46.3) 08/26/18 03:48 RDW Coeff of Kalee 13.4 % (11.5-14.5) 08/26/18 03:48 Plt Count 180 K/uL (130-400) 08/26/18 03:48 MPV 9.8 fL (7.4-10.4) 08/26/18 03:48 Immature Gran % (Auto) 0.1 % 08/26/18 03:48 Neut % (Auto) 75.8 % 08/26/18 03:48 Lymph % (Auto) 15.5 % 08/26/18 03:48 [place] % (Auto) 8.1 % 08/26/18 03:48 Eos % (Auto) 0.2 % 08/26/18 03:48 Baso % (Auto) 0.3 % 08/26/18 03:48 Immature Gran # (Auto) 0.01 K/uL (0.00-0.02) 08/26/18 03:48 Neut # (Auto) 6.75 K/uL (1.4-6.5) H 08/26/18 03:48 Lymph # (Auto) 1.38 K/uL (1.2-3.4) 08/26/18 03:48 [place] # (Auto) 0.72 K/uL (0.11-0.59) H 08/26/18 03:48 Eos # (Auto) 0.02 K/uL (0-0.5) 08/26/18 03:48 Baso # (Auto) 0.03 K/uL (0-0.2) 08/26/18 03:48 PT 10.4 Seconds (9.0-12.0) 08/02/18 16:05 INR 1.0 (0.9-1.1) 08/02/18 16:05 APTT 24.4 Seconds (21.0-31.0) 08/26/18 03:48 PTT Ratio 0.9 08/26/18 03:48 Sodium 141 mmol/L (136-145) 08/26/18 03:48 Potassium 4.1 mmol/L (3.5-5.1) 08/26/18 03:48 Chloride 111 mmol/L (98-107) H 08/26/18 03:48 Carbon Dioxide 26 mmol/L (21-32) 08/26/18 03:48 Anion Gap 4.0 (3-11) 08/26/18 03:48 BUN 11 mg/dl (7-18) 08/26/18 03:48 Creatinine 0.66 mg/dl (0.6-1.2) 08/26/18 03:48 Est Cr Clr Drug Dosing 65.4 ml/min 08/26/18 03:48 Est GFR ( Amer) 105.9 08/26/18 03:48 Est GFR (Non-Af Amer) 91.4 08/26/18 03:48 BUN/Creatinine Ratio 17.2 (10-20) 08/26/18 03:48 Glucose 88 mg/dl (70-99) 08/26/18 03:48 POC Glucose 91 (70-99) 08/26/18 03:32 Lactate 0.7 mmol/L (0.4-2.0) 08/26/18 03:48 Calcium 8.2 mg/dl (8.5-10.1) L 08/26/18 03:48 Magnesium 2.0 mg/dl (1.8-2.4) 08/26/18 03:48 Total Bilirubin 0.3 mg/dl (0.2-1) 08/26/18 03:48 AST 16 U/L (15-37) 08/26/18 03:48 ALT 15 U/L (12-78) 08/26/18 03:48 Alkaline Phosphatase 67 U/L (45-117) 08/26/18 03:48 Total Protein 5.4 gm/dl (6.4-8.2) L 08/26/18 03:48 Albumin 2.7 gm/dl (3.4-5.0) L 08/26/18 03:48 Globulin 2.7 gm/dl (2.5-4.0) 08/26/18 03:48 Albumin/Globulin Ratio 1.0 (0.9-2) 08/26/18 03:48 TSH 0.662 uIu/ml (0.300-4.500) 08/26/18 03:48 Blood Type O Negative 08/02/18 16:05 Antibody Screen NEGATIVE 08/02/18 16:05 Diagnostic Findings EKG as per my interpretation rate 45, sinus bradycardia, diffuse T wave flattening
[2018-08-26] MEDS ORDERED: ATROPINE SULFATE 0.1 MG/ML 10ML SYR IV PRN (07:13)
[2018-08-26] MEDS ORDERED: PROMETHAZINE HCL 12.5 MG in SODIUM CHLORIDE 0.9% 50 ML IV PRN (07:13)
[2018-08-26] MEDS ORDERED: ACETAMINOPHEN 325 MG TAB PO PRN (07:13)
[2018-08-26] MEDS ORDERED: LACTATED RINGER'S 1,000 ML IV ONE (07:13)
[2018-08-26] MEDS: LACTOBACILLUS ACIDOPHILUS (FLORANEX) TAB PO SCH (08:00)
[2018-08-26] MEDS: DOCUSATE SODIUM 100 MG CAP PO SCH ×2 (08:00→21:28)
[2018-08-26] MEDS: ASCORBIC ACID 500 MG TAB PO SCH ×2 (08:00→17:29)
[2018-08-26] MEDS: FERROUS GLUCONATE 324 MG TAB PO SCH ×2 (08:00→17:29)
[2018-08-26] MEDS: PSYLLIUM 58.6% POWDER PACKET PO SCH ×2 (08:00→21:22)
[2018-08-26] MEDS: MULTIVITAMIN TAB PO SCH (08:00)
[2018-08-26] MEDS: ASPIRIN 81 MG ECTAB PO SCH ×2 (08:00→21:23)
[2018-08-26] MEDS: OMEGA-3 (PURIFIED FISH OIL) 1 GM CAP PO SCH (08:01)
[2018-08-26] MEDS: LEVOTHYROXINE SODIUM 75 MCG TABLET PO SCH (08:01)
--- NOTE | 2018-08-26 08:49 | Progress Note ---
DATE: 08/26/2018 SUBJECTIVE: A 68-year-old white female postop day 1 from a left knee replacement. She is sent down to PCU for some hypotension and bradycardia. She is doing well. Some mild knee pain. Not having any symptoms. No chest pain, no shortness of breath. Her leg is just kind of really waking up. She says the block took a long time to wear off. OBJECTIVE: VITAL SIGNS: Temperature 36.8. Vital signs are stable. Pulse 56. Blood pressure 90/45. GENERAL: Reveals a pleasant, middle-aged female. She is sitting up in bed and looks completely awake, alert, oriented and appropriate. EXTREMITIES: Examination of the left leg reveals the leg to be well aligned. Dressing is clean, dry and intact. She can dorsiflex and plantarflex her foot appropriately. She still says she has some subjective numbness on the medial side of the leg. Her neurovascular status is intact. LABORATORIES: Hemoglobin 10.4. Hematocrit 31.2. Electrolytes are stable. EKG shows sinus bradycardia. ASSESSMENT: A 68-year-old white female postoperative day 1 from a left knee replacement, doing pretty well. She was sent down to PCU for some hypotension, bradycardia. She is completely asymptomatic. EKG is not much different, although her heart rate is a bit slow. They did give her some Narcan on the floor. Her pain is controlled. She is neurologically intact. She is alert and appropriate and without any symptoms. PLAN: 1. DVT prophylaxis including thigh-high TEDs, SCDs, and aspirin twice a day. 2. PT/OT. Weight bear as tolerated. Left total knee protocol. 3. Pain control. We are going to have to be careful with pain meds. We will treat her as needed, but stick to Tylenol and Toradol as best as possible and use limited narcotics. 4. Disposition: She is hoping to be discharged to home with some home health once adequately recovered. 5. Workup for bradycardia and hypotension. She is completely asymptomatic. Medicine is looking into this, but I think it is unlikely to show any significant abnormalities.
[2018-08-26] MEDS ORDERED: HERB LAX PO SCH (09:00)
[2018-08-26] MEDS ORDERED: [UNRECOGNIZED DRUG - OTHER] TOP SCH (09:00)
--- NOTE | 2018-08-26 10:20 | Anesthesiology Progress Note ---
Date of Service August 26, 2018 Anesthesia Post Procedure Vital Signs Vital Signs: Temp Pulse Pulse Pulse Pulse Resp BP 08/26/18 07:24 56 L 08/26/18 07:12 36.8 C 62 16 88/45 L 08/26/18 04:10 65 08/26/18 02:49 08/26/18 02:46 36.6 C 46 L 14 08/25/18 23:43 36.5 C 56 L 12 84/47 L 08/25/18 18:20 36.2 C L 16 08/25/18 17:24 36.6 C 76 16 08/25/18 16:39 36.2 C L 08/25/18 16:20 36.2 C L 56 L 16 08/25/18 15:49 34.8 C L 58 L 16 08/25/18 15:40 34.7 C L 08/25/18 15:10 36.4 C L 61 16 08/25/18 15:00 68 16 08/25/18 14:50 64 16 08/25/18 14:40 36.2 C L 70 16 08/25/18 10:47 36.5 C 74 18 BP Pulse Ox 08/26/18 07:24 08/26/18 07:12 99 08/26/18 04:10 123/68 100 08/26/18 02:49 90/48 L 08/26/18 02:46 80/48 L 95 08/25/18 23:43 85/48 L 97 08/25/18 18:20 105/62 95 08/25/18 17:24 96/55 L 98 08/25/18 16:39 08/25/18 16:20 91/54 L 99 08/25/18 15:49 108/66 99 08/25/18 15:40 08/25/18 15:10 95/52 L 99 08/25/18 15:00 100/54 L 99 08/25/18 14:50 88/45 L 100 08/25/18 14:40 90/49 L 100 08/25/18 10:47 116/53 L 98 Transfer of Care Handoff Completed per policy Notes Mental Status: alert / awake / arousable Patient Amnestic to Procedure: Yes Nausea / Vomiting: adequately controlled Pain: adequately controlled Airway Patency, RR, SpO2: stable & adequate BP & HR: see Notes below Hydration State: stable & adequate Neuraxial Anesthesia: was administered and sensory block resolved Anesthetic Complications: no major complications apparent and Pt Satisfied with anesthetic care Notes: Some residual numbness left ankle but otherwise no neurological deficits. Had mild hypotension and bradycardia which triggered transfer to PCU. When I saw patient this morning, she was sitting upright in bed, eating breakfast without complaints.
--- NOTE | 2018-08-26 13:59 | Hospitalist Progress Note ---
Date of Service August 26, 2018 Assessment & Plan (1) Hypotension: (2) Bradycardia: likely secondary to medications ([id number] Tapentadol in an opioid alex patient, Scopolamine) Echocardiogram: EF 66 5%, left ventricle motion normal, left ventricle systolic function normal, no significant valvular disease No other arrhythmias noted while on telemetry improved hemodynamic, neurologic status after fluid bolus, IV Atropine, Narcan administration; Scopolamine patch removal Blood pressure in the high 90s to 100s systolically, rate in the high 50s-still relatively low but improving compared to last night Patient feels better today compared to yesterday as well Continue lactated Ringer's, tramadol for pain control and reserve oxycodone for severe pain Continue to monitor closely in telemetry unit Hypothyroidism, euthyroid based on TSH Postop anemia Hemoglobin 10.4 Monitor CBC daily Thank you for this consultation. We will follow the patient with you during their hospital stay. You can reach a [facility] via pager @ [phone]. Subjective Follow-up for bradycardia and hypotension Seen sitting up in bedside chair, comfortable, nondistressed States she feels improved compared to yesterday Has mild lightheadedness, better than yesterday Denies chest pain, shortness of breath, palpitations, nausea or vomiting Reports left knee pain, really controlled by analgesics Denies other symptoms Review of Systems Review of Systems: All systems reviewed & are unremarkable except as noted in HPI & below Physical Exam Physical Exam: General- oriented x 3, not in distress, speaks in sentences with no effort or accessory muscle use Head- atraumatic Eyes- PERRL, EOMI, anicteric ENT- oropharynx clear Neck- supple, no JVD, no adenopathy, no thyromegaly; carotids +2/2, no bruits appreciated Lungs- clear to auscultation bilaterally, no rales/wheezes Heart- normal rate, regular rhythm; no murmur, no gallop, no rub appreciated Abdomen- normal bowel sounds, nondistended, soft, nontender, no masses or hepatosplenomegaly Extremities- Left lower extremity: Heavy dressing in place Right lower extremity: No pretibial edema, no calf tenderness; peripheral pulses intact Neuro- alert, oriented x 3; CN 2-12 grossly intact; motor 5/5 bilaterally;sen sation 100% on all extremities; no other gross focal neurologic deficits Skin- warm & dry Results & Data Vital Signs (Past 12 Hours) Vital Signs Temp Pulse Pulse Pulse Resp BP BP 08/26/18 13:42 66 101/61 08/26/18 11:08 36.5 C 57 L 17 93/57 L 08/26/18 07:24 56 L 08/26/18 07:12 36.8 C 62 16 88/45 L 08/26/18 04:10 65 123/68 08/26/18 02:49 90/48 L 08/26/18 02:46 36.6 C 46 L 14 80/48 L Pulse Ox 08/26/18 13:42 08/26/18 11:08 99 08/26/18 07:24 08/26/18 07:12 99 08/26/18 04:10 100 08/26/18 02:49 08/26/18 02:46 95 Laboratory Results Laboratory Results - last 24 hr 08/26/18 08/26/18 08/26/18 03:32 03:48 03:48 WBC 8.91 RBC 3.48 L Hgb 10.4 L Hct 31.2 L MCV 89.7 MCH 29.9 MCHC 33.3 RDW Std Deviation 43.8 RDW Coeff of Kalee 13.4 Plt Count 180 MPV 9.8 Immature Gran % (Auto) 0.1 Neut % (Auto) 75.8 Lymph % (Auto) 15.5 [place] % (Auto) 8.1 Eos % (Auto) 0.2 Baso % (Auto) 0.3 Immature Gran # (Auto) 0.01 Neut # (Auto) 6.75 H Lymph # (Auto) 1.38 [place] # (Auto) 0.72 H Eos # (Auto) 0.02 Baso # (Auto) 0.03 APTT 24.4 PTT Ratio 0.9 Sodium Potassium Chloride Carbon Dioxide Anion Gap BUN Creatinine Est Cr Clr Drug Dosing Est GFR ( Amer) Est GFR (Non-Af Amer) BUN/Creatinine Ratio Glucose POC Glucose 91 Lactate Calcium Magnesium Total Bilirubin AST ALT Alkaline Phosphatase Total Protein Albumin Globulin Albumin/Globulin Ratio TSH 08/26/18 08/26/18 03:48 03:48 WBC RBC Hgb Hct MCV MCH MCHC RDW Std Deviation RDW Coeff of Kalee Plt Count MPV Immature Gran % (Auto) Neut % (Auto) Lymph % (Auto) [place] % (Auto) Eos % (Auto) Baso % (Auto) Immature Gran # (Auto) Neut # (Auto) Lymph # (Auto) [place] # (Auto) Eos # (Auto) Baso # (Auto) APTT PTT Ratio Sodium 141 Potassium 4.1 Chloride 111 H Carbon Dioxide 26 Anion Gap 4.0 BUN 11 Creatinine 0.66 Est Cr Clr Drug Dosing 65.4 Est GFR ( Amer) 105.9 Est GFR (Non-Af Amer) 91.4 BUN/Creatinine Ratio 17.2 Glucose 88 POC Glucose Lactate 0.7 Calcium 8.2 L Magnesium 2.0 Total Bilirubin 0.3 AST 16 ALT 15 Alkaline Phosphatase 67 Total Protein 5.4 L Albumin 2.7 L Globulin 2.7 Albumin/Globulin Ratio 1.0 TSH 0.662
[2018-08-26] MEDS: TRAMADOL HCL 50 MG TABLET PO PRN (14:23)
[2018-08-26] MEDS: SENNA 8.6 MG TAB PO SCH (21:23)
[2018-08-27] MEDS: KETOROLAC TROMETHAMINE 15 MG/ML VIAL IV SCH ×2 (05:02→10:31)
[2018-08-27] MEDS: ACETAMINOPHEN 500 MG TAB PO SCH (05:02)
[2018-08-27 05:46] LABS: Basophils # (auto) 0.03 K/uL (0-0.2); Basophils % (auto) 0.4 %; Eosinophils # (auto) 0.17 K/uL (0-0.5); Eosinophils % (auto) 2.3 %; Hematocrit (blood only) 32.7 % (37-47); Hemoglobin 10.9 g/dL (12.0-16.0); Immature Granulocytes # (auto) 0.02 K/uL (0.00-0.02); Immature Granulocytes % (auto) 0.3 %; Lymphocytes # (auto) 1.65 K/uL (1.2-3.4); Mean Corpuscular Hgb Conc 33.3 g/dL (32-36); Mean Corpuscular Volume 90.8 fL (80-100); Mean Platelet Volume 9.6 fL (7.4-10.4); Monocytes # (auto) 0.84 K/uL (0.11-0.59); Monocytes % (auto) 11.2 %; Neutrophils # (auto) 4.79 K/uL (1.4-6.5); Neutrophils % (auto) 63.8 %; Platelet Count 174 K/uL (130-400); RDW Coefficient of Variation 13.4 % (11.5-14.5); RDW Standard Deviation 44.8 fL (36.4-46.3)
[2018-08-27 06:10] LABS: BUN Creatinine Ratio 21.3 (10-20); Calcium 8.3 mg/dl (8.5-10.1); Creatinine Clr Calc Pharmacy 69.6 ml/min; Est GFR (African American) 108.1; Est GFR (Non-African American) 93.3; Potassium 3.5 mmol/L (3.5-5.1)
[2018-08-27] MEDS: LACTOBACILLUS ACIDOPHILUS (FLORANEX) TAB PO SCH (08:09)
[2018-08-27] MEDS: ASCORBIC ACID 500 MG TAB PO SCH (08:10)
[2018-08-27] MEDS: ASPIRIN 81 MG ECTAB PO SCH (08:10)
[2018-08-27] MEDS: PSYLLIUM 58.6% POWDER PACKET PO SCH (08:10)
[2018-08-27] MEDS: OMEGA-3 (PURIFIED FISH OIL) 1 GM CAP PO SCH (08:10)
[2018-08-27] MEDS: LEVOTHYROXINE SODIUM 75 MCG TABLET PO SCH (08:11)
[2018-08-27] MEDS: MULTIVITAMIN TAB PO SCH (08:11)
[2018-08-27] MEDS: TRAMADOL HCL 50 MG TABLET PO PRN (08:15)
[2018-08-27] MEDS: DOCUSATE SODIUM 100 MG CAP PO SCH (08:15)
[2018-08-27] MEDS: FERROUS GLUCONATE 324 MG TAB PO SCH (08:25)
--- NOTE | 2018-08-27 08:39 | Orthopedic Progress Note ---
Date of Service August 27, 2018 Assessment & Plan (1) Localized osteoarthritis of left knee: Overall she is doing fairly well. She is asymptomatic with her bradycardia. She is been ambulating yesterday with physical therapy and is ambulating with the nurse today. She is orthopedically stable for discharge to home later today. She can be discharged after seen by the hospitalist service. Medications have been written. She will follow-up with Dr. Jennings in 2 weeks. Present on Admission?: Yes Subjective Radha was seen and examined this morning. She was up and ambulating with the nurse around the nurses station. She seemed to be ambulating okay. She is having some soreness in her left knee but is not too bad. She is been asymptomatic with her bradycardia and in fact, her pulses in the normal range n ow. She has no complaints. Physical Exam Musculoskeletal: Physical exam of the left knee, the dressing has been changed and there is a little bit of serosanguineous drainage drainage on ABD pad. She is ambulating with a walker. She is active dorsiflexion and plantarflexion of her left ankle. Results & Data Vital Signs (Past 12 Hours) Vital Signs Temp Pulse Pulse Resp BP Pulse Ox 08/27/18 08:07 36.9 C 66 18 124/74 99 08/27/18 08:00 66 08/27/18 03:29 36.7 C 63 17 104/65 94 08/27/18 00:00 55 L 08/26/18 23:54 36.5 C 62 18 108/67 95
--- NOTE | 2018-08-27 16:12 | Hospitalist Progress Note ---
Date of Service August 27, 2018 Assessment & Plan (1) Hypotension: Final Assessment and Recommendations as follows : Hypotension likely secondary to symptomatic bradycardia likely secondary to medications ([id number] Tapentadol in an opioid alex patient, Scopolamine) improved hemodynamic, neurolologic status after fluid bolus, IV Atropine, Narcan administration; Scopolamine patch removal) Echocardiogram: Unrevealing Heart rate further improved, blood pressure further improved with IV fluids No arrhythmias noted in air sampling and monitoring so far Patient clinically doing much better Recommend tramadol as needed for pain to avoid hypotension and bradycardia Patient reports relief of knee pain with using tramadol Advised to continue increased oral fluid intake We will arrange for PCP follow-up in the next week Hypothyroidism TSH within normal range Postop anemia Remains at 10 Thank you very much for this consultation. Subjective Follow-up consult for hypotension, bradycardia No abnormal heart rhythms overnight on telemetry Seen sitting up in bed, awake alert oriented x3, answers all questions appropriately States that she tolerated physical therapy well today, ambulate in the hallways Had left knee pain after physical therapy and felt somewhat lightheaded but that resolved She is in good spirits, back to baseline mental status as per patient's at bedside Denies chest pain, shortness of breath, palpitations, nausea or vomiting, sweating States she is ready would like to be discharged today Review of Systems Review of Systems: All systems reviewed & are unremarkable except as noted in HPI & below Physical Exam Physical Exam: General- oriented x 3, not in distress, speaks in sentences with no effort or accessory muscle use Eyes- anicteric Neck- no JVD Lungs- clear BS bilaterally, no crackles or wheezing Heart- normal rate, regular rhythm; no murmurs Abdomen- normal bowel sounds, nondistended, soft, nontender Extremities- Left lower extremity: Soft brace in place, dressing in place Right lower extremity: No pretibial edema, no calf tenderness Neuro- alert, oriented x 3; no gross focal neurologic deficits Skin- warm & dry Results & Data Vital Signs (Past 12 Hours) Vital Signs Temp Pulse Pulse Pulse Resp BP BP 08/27/18 11:24 36.9 C 63 64 18 118/72 107/66 08/27/18 10:48 63 118/72 08/27/18 08:07 36.9 C 66 18 124/74 08/27/18 08:00 66 Pulse Ox 08/27/18 11:24 99 08/27/18 10:48 08/27/18 08:07 99 08/27/18 08:00 Laboratory Results Laboratory Results - last 24 hr 08/27/18 08/27/18 05:22 05:22 WBC 7.50 RBC 3.60 L Hgb 10.9 L Hct 32.7 L MCV 90.8 MCH 30.3 MCHC 33.3 RDW Std Deviation 44.8 RDW Coeff of Kalee 13.4 Plt Count 174 MPV 9.6 Immature Gran % (Auto) 0.3 Neut % (Auto) 63.8 Lymph % (Auto) 22.0 [place] % (Auto) 11.2 Eos % (Auto) 2.3 Baso % (Auto) 0.4 Immature Gran # (Auto) 0.02 Neut # (Auto) 4.79 Lymph # (Auto) 1.65 [place] # (Auto) 0.84 H Eos # (Auto) 0.17 Baso # (Auto) 0.03 Sodium 139 Potassium 3.5 Chloride 106 Carbon Dioxide 27 Anion Gap 6.0 BUN 13 Creatinine 0.62 Est Cr Clr Drug Dosing 69.6 Est GFR ( Amer) 108.1 Est GFR (Non-Af Amer) 93.3 BUN/Creatinine Ratio 21.3 H Glucose 81 Calcium 8.3 L
--- NOTE | 2018-08-28 07:43 | Operative Report ---
DATE OF OPERATION: 08/25/2018 SURGEON: Angel Jennings MD PRESS BREAKER: JOHNNIE Alvarez PREOPERATIVE DIAGNOSIS: Left knee degenerative joint disease. POSTOPERATIVE DIAGNOSIS: Left knee degenerative joint disease. PROCEDURE PERFORMED: Left cemented posterior stabilized total knee arthroplasty. COMPLICATIONS: None. ESTIMATED BLOOD LOSS: 50 mL. FLUID REPLACEMENT: 2000 mL crystalloid fluid replacement. TOURNIQUET TIME: 52 minutes at 300 mmHg. ANESTHESIA: Spinal with adductor canal block. DRAINS: None. SPECIMENS: Left knee sent for Pathology. OPERATIVE INDICATIONS: The patient is a 68-year-old female who has had a fairly long history of bilateral knee pain and discomfort, left side a bit worse than the right. She has been through extensive conservative treatment over time, which had become less successful. We had actually scheduled for surgery in the past, but had to cancel due to some pulmonary/pneumonia issues. She now presents for left knee replacement. OPERATIVE FINDINGS: Operative findings revealed advanced left knee DJD. She had extensive grade 4 hfbg-[id number] disease of the medial compartment. She had some focal grade 4 changes in the patellofemoral compartments and the less severe changes laterally. She had a fixed varus deformity to her knee and 10-15 degree flexion contracture. She had bony osteophytes primarily in the medial compartment. OPERATIVE IMPLANTS: Operative implants consisted of: 1. Biomet Vanguard size 62.5 left posterior stabilized femoral component. 2. Biomet size 63 tibial tray. 3. A 10 mm posterior stabilized polyethylene insert. 4. A 28 x 8 all poly patella. OPERATIVE PROCEDURE: The patient was taken to the Operating Room, identified and placed on the Operating Room table in supine position. All contact areas were appropriately padded. I.V. antibiotics were provided by Anesthesia team. A spinal anesthetic and adductor canal block had been provided in the Holding Area. Kwong catheter was placed in sterile fashion. A left thigh tourniquet was then placed and left lower extremity was then prepped and draped in usual sterile fashion. Left leg was elevated and exsanguinated with Esmarch and tourniquet was placed at 300 mmHg. An anterior approach to the left knee was then performed through a longitudinal incision centered over the patella. Sharp dissection was carried through subcutaneous tissue down to the level of the extensor mechanism. A medial parapatellar arthrotomy incision was made. Some subperiosteal dissection was carried out medially. The fat pad resected from beneath the patellar tendon. The lateral patellofemoral ligament was released. The patella was everted and knee was flexed. The osteophytes were taken off the distal femur. The ACL and PCL were then released from the distal femur. The tibia subluxated anteriorly. The external tibial alignment jig was then placed in the anterior face of the tibia and adjusted 14 mm medially. Proximal tibial cut was made to remove about a millimeter of bone from the most deficient aspect of the medial tibial plateau. Some osteophytes were taken off posteromedially. Tibia sized to a size 63. Attention was then drawn to the femur. The distal femur was entered with a sharp drill bit. Intramedullary canal was suctioned. A left 5-degree valgus cutting guide was placed. Distal femoral cutting block was pinned in place. Distal femoral cut was made to take an additional 3 mm of bone off distal femur. The femur was then sized to a size 62.5. We did downsize this almost an entire size due to the narrow medial and lateral dimensions of the femur. The AP cutting block was pinned parallel to the epicondylar axis, which was 6 degrees of external rotation. The anterior cut, anterior chamfer, posterior cut, posterior chamfer cuts were made. Box cutting guide was placed and adjusted slightly lateral and the box cut was made. The knee was flexed. The remnants of the medial and lateral menisci were excised. The osteophytes were taken off the posterior aspect of the femur. A trial femoral component was placed. The tibial tray was pinned in maximum external rotation and the drill and stem punch were used to create defect in proximal tibia for the tibial tray. The knee was then trialed and 10 mm insert fit most appropriately. Attention was then drawn to the patella. The patella was cleaned of all soft tissues. Patella thickness measured 20 mm in thickness and was cut down to 13. It was sized to a size 28 patella. Lug holes were drilled for a 28 patella. Lateral osteophyte was removed. Patella button was placed. Knee was taken through range of motion and the patella tracked nicely with no thumbs test. Attention was then drawn toward placement of permanent components. All trial components were removed. Bone plug was placed in the distal femur to limit blood loss. A double batch of Pal[place] G cement was mixed. A Biomet Vanguard size 62.5 left posterior stabilized femoral component, size 63 tibial tray, 10 mm posterior stabilized polyethylene insert, and a 28 x 8 all poly patella were then cemented into place. The knee was brought out into full extension until cement hardened. A final cement check was then performed. Pericapsular tissues were injected with a total of 100 mL of a combination of 20 mL of Exparel, 30 mL of normal saline and 50 mL of 0.25% Marcaine with epinephrine. The patient did receive 1 g of tranexamic acid. The tourniquet was then let down for final tourniquet time of 52 minutes. Hemostasis was assured using electrocautery. Extensor mechanism was then closed with a combination of #1 PDS suture and #1 Vicryl suture in a [id number] fashion. Extensor mechanism was checked and found to be intact. The subcutaneous tissue was then closed with #2 Dexon suture in a buried interrupted fashion. Skin was closed with skin cornel. Leg was then cleaned, dried and a sterile dressing of Xeroform, 4 x 4, sterile cast padding and an Rudolph bandage were applied. The patient was then transferred to the Recovery Room in a stable condition. The patient tolerated the procedure well with no complication. All needle and sponge counts were correct at the end of the operation. I attest to the content of the Intraoperative Record and any orders documented therein. Any exception s are noted below.
--- NOTE | 2018-08-30 09:30 | Discharge Summary ---
ADMITTING PHYSICIAN AND SURGEON: Angel Jennings MD ADMITTING DIAGNOSIS: Left knee degenerative joint disease. SURGERY PERFORMED: Left total knee arthroplasty. SECONDARY DIAGNOSES: Elevated cholesterol, heart murmur, occasional irregular heartbeat, hypothyroidism, neck pain and back pain, postoperative hypotension, bradycardia. CONSULTS: Dr. Zimmerman for postoperative hypotension. HISTORY AND PHYSICAL EXAMINATION: Well documented in the patient's chart. HOSPITAL COURSE: The patient was admitted on 08/25/2018, underwent total knee arthroplasty. She tolerated the procedure well. There were no complications. She was transferred to the PACU postoperatively and later to the orthopedic floor for further care. She was given Ancef for antibiotic prophylaxis, ED stockings, SCDs and aspirin for DVT prophylaxis. Hemoglobin, hematocrit and vital signs were monitored during her hospital stay. She did not require any blood transfusion. She did have some hypotension postoperatively as well as some bradycardia, was transferred to the PCU and hospitalist service was consulted for further management. Her medications were changed. She was given a fluid bolus, IV atropine, Narcan as well as removal of the scopolamine patch. She was doing much better clinically. There were no complications during her hospital stay. By postoperative day 2, she was tolerating a regular diet, pain was controlled with oral pain medicine. She was participating in physical therapy. On postoperative day 2, she was discharged home, set up with home health services. She was given printed discharge instructions including new prescription for extra-strength Tylenol, aspirin, iron supplement and tramadol. Continue her home medicines. Continue physical therapy, weightbearing as tolerated, ED stockings. She was recommended she follows up with her primary care provider regarding the hypotension. She will follow up approximately 2 weeks postoperatively or sooner if there are any problems or concerns.
== END 2018-08-27 13:09 | disposition home health service (06) | DRG 470 ==
LOC: ASU 10:07 → 3E 14:35 → 2S 08-26 07:14

== ENCOUNTER 2019-09-18 08:28 | Observation (INO) ==
--- NOTE | 2019-08-30 16:04 | PAT Medication Instructions ---
Medication Instructions Date of Service August 30, 2019 Home Medications Medication Instructions Recorded amoxicillin 500 mg tablet 2,000 mg PO ONCE #4 tab 12/20/18 Herb Lax 1 tab PO DAILY Metamucil 1 tbsp PO BID [place]-3 2 cap PO DAILY Premarin 1 dose VAGINAL UD PRN collagen (bovine) 1 applic TOPICAL DAILY Probiotic 1 cap PO DAILY levothyroxine [Synthroid] 75 mcg PO QAM amoxicillin 500 mg tablet 2,000 mg PO ONCE Continue as directed amoxicillin 500 mg tablet 2,000 mg PO ONCE (will not need to take AM of surgery- will get IV abx preop) Premarin 1 dose VAGINAL UD PRN STOP taking 2 weeks before surgery Herb Lax 1 tab PO DAILY [place]-3 2 cap PO DAILY STOP taking 24 hours before surgery collagen (bovine) 1 applic TOPICAL DAILY DO NOT take the morning of surgery Probiotic 1 cap PO DAILY Metamucil 1 tbsp PO BID Take morning of surgery With a small sip of water, OTHERWISE NOTHING TO EAT OR DRINK AFTER MIDNIGHT: levothyroxine [Synthroid] 75 mcg PO QAM Other Notes If you have any questions please call us at [phone] or [phone] or [phone] or [phone]
--- NOTE | 2019-08-31 13:32 | Anesthesiology Consultation ---
Date of Service August 31, 2019 Assessment & Plan (1) Encounter for pre-operative examination: COVID Status: As of 08/30 assessment, patient denies travel to endemic area, known exposure/sick contacts, or symptoms of COVID19. Patient instructed to follow strict social distancing guidelines, wear a mask in public and avoid travel for 14 days prior to surgery. Preoperative COVID19 testing to be completed prior to surgery. Patient made aware to self-isolate as much as possible between COVID testing and surgery. H/O PONV. With previous TKA patient was given scopolamine patch. Had post-op hypotension and bradycardia felt 2/2 [id number] narcotics in an opioid naive patient combined with scopolamine patch. Patch was removed, she was given Narcan and fluid bolus with resolution of symptoms. Scopolamine patch ordered for DOS, patient will be monitored for hypotension/bradycardia. Abnormal re-op EKG (new septal infarct). Patient is very active, exercising daily at home with no cardiopulmonary symptoms, and had a normal echo 1 year ago. Case d/w Dr. Jorge, who also reviewed the EKGs with Dr. Neves. [place] that, given the above, there is no benefit of a cardiology consult/clearance, and patient OK to proceed with surgery. Chart Review Chart Review: Acceptable Risk for Surgery and Patient seen in Pre Admission Testing Teaching & Discussion Instructed NPO after midnight before surgery, except medications with 15 cc of water. Medication instructions provided according to the PAT guidelines. History Surgery Operation Date: 09/18/19 12:30 Proposed Procedures p Right Total Knee Arthroplasty - Angel Jennings MD Height/Weight Height: 5 ft 2 in Weight: 59 kg Allergies Allergy/AdvReac Type Severity Reaction Status Date / Time azithromycin [From Zithromax] Allergy Severe DIFFICULTY Verified 08/27/19 15:12 WALKING/SPEAKING; HEARD A "HUMMING SOUND" adhesive tape Allergy Mild BandAid - Verified 08/27/19 15:12 PRURITIS bee venom protein (honey bee) Allergy Unknown SWELLING Verified 08/27/19 15:12 diazepam AdvReac Unknown N/V Verified 08/27/19 15:12 tramadol AdvReac Unknown Verified 08/27/19 15:12 Unclassified Drugs Allergy Unknown BLACK Uncoded 08/27/19 15:12 RUBBER MIX- PRURITIS Medications Home Medications Medication Instructions Recorded Confirmed Last Taken Herb Lax 1 tab PO DAILY 03/31/18 08/27/19 08/24/18 20:00 Metamucil 1 tbsp PO BID 03/31/18 08/27/19 08/24/18 20:00 [place]-3 2 cap PO DAILY 03/31/18 08/27/19 08/19/18 08:00 Premarin 1 dose VAGINAL UD PRN 03/31/18 08/27/19 Unknown collagen (bovine) 1 applic TOPICAL DAILY 03/31/18 08/27/19 08/24/18 20:00 Probiotic 1 cap PO DAILY 05/23/18 08/27/19 08/24/18 20:00 levothyroxine [Synthroid] 75 mcg PO QAM 07/27/18 08/27/19 08/24/18 06:00 amoxicillin 500 mg tablet 2,000 mg PO ONCE #4 tab 12/20/18 08/27/19 Unknown Past Medical History Medical History Constipation Degenerative disc disease Deviated septum Dysphagia CHRONIC, STABLE WITH CERTAIN FOOD TRIGGERS X 10 YEARS Fear of needles Hypothyroidism Osteoarthritis Osteoporosis Right knee DJD Salivary gland disturbance OCCASIONAL LEFT SIDED BLOCKAGE; NO CURRENT ISSUES Tinnitus Exercise / Class Metabolic Activity II 4-5 Yardwork/Stairs/Walk up hill (Denies CP or SOB with 1 FOS, uses "Max product trainer" elliptical at home, does daily) Past Family History Family History Family/Other Family history of diabetes mellitus cousins Aunt Family history of breast cancer Daughter PONV (postoperative nausea and vomiting) Past Surgical History Surgical History History of anesthesia reaction reports bradycardia/hypotension following L TKA 08/2018 [facility] - says she was transferred to PCU post op for cardiac monitoring History of colonoscopy History of detached retina repair RIGHT EYE History of dilatation and curettage History of left knee replacement 08/25/2018 [facility] History of left knee replacement History of ovarian cystectomy History of tonsillectomy History of wisdom tooth extraction PONV (postoperative nausea and vomiting) Past Anesthesia History No Family Hx of Anesthesia Complications (daughter gets sick 'with opioids') +PONV and hypotension/bradycardia after TKA History of PONV History of PONV Social History Smoking Status: Never smoker Do You Dip or Chew Tobacco: No Hx Alcohol Use: No Hx Substance Use: No substance use type: does not use Review of Systems Pt denies any recent chest pain, shortness of breath, cough, fever or URI. +occ palpitations Physical Exam Vital Signs BP: 105/61 P: 64bpm SPO2: 96% RA T: 97.9 F R: 16 ENMT Mouth: + dental restorations (2 gold overlays on molars); no chipped teeth and no loose teeth Thyromental Distance: < 3.5 Finger Breadths (2.5) Mallampati Class: I Neck normal visual inspection; neck extension not limited Respiratory normal respiratory effort Auscultation: lungs clear to auscultation bilaterally Cardiovascular Rate/Rhythm: regular rhythm and + bradycardic Heart Sounds: no murmur Extremities: no edema Testing Laboratory Results 08/31/19 13:10 08/31/19 13:10 PT 11.2 Seconds (9.0-12.0) 08/31/19 13:10 INR 1.1 (0.9-1.1) 08/31/19 13:10 APTT 26.6 Seconds (21.0-31.0) 08/31/19 13:10 Blood Type O Negative 08/31/19 13:10 Antibody Screen NEGATIVE 08/31/19 13:10 Electrocardiogram Date: 08/31/19 Findings: + SB @ (50bpm) Septal infarct, age undetermined. Nonspecific ST abnormality. Compared to EKG from 08/27/19, NSTWA no longer evident in anterior leads. Chest X-Ray Date: 08/31/19 Findings: + NAD Echocardiogram Date: 08/26/18 EF: 60-65% Study was of technically good quality. Sinus bradycardia in the range of 50 to 59 bpm was present during echocardiogr am. There is normal LV wall thickness and wall motion. LV systolic function is normal. The LV diastolic function is normal. There is no significant valve disease.
--- NOTE | 2019-08-31 14:12 | XRay Report ---
XR chest Pre-admission PA/Lat CLINICAL HISTORY: Preoperative chest COMPARISON STUDY: 08/02/2018 FINDINGS: The cardiac and mediastinal contours are normal. There is no evidence of focal pulmonary co nsolidation. There is no evidence of failure. No pleural effusions are visualized.[A vague opacity to wards the left lung base is felt to represent a summation with breast tissue and rib. IMPRESSION: No active disease in the chest. ACT 112: Negative or not required by law. Electronically signed by: Sudhakar Amaya M.D. 08/31/2019 2:11 PM
[2019-08-31 14:40] LABS: Basophils # (auto) 0.07 K/uL (0-0.2); Basophils % (auto) 1.2 %; Eosinophils # (auto) 0.14 K/uL (0-0.5); Eosinophils % (auto) 2.4 %; Hematocrit (blood only) 38.5 % (37-47); Lymphocytes # (auto) 2.04 K/uL (1.2-3.4); Lymphocytes % (auto) 34.6 %; Mean Corpuscular Hemoglobin 30.3 pg (25-34); Mean Corpuscular Hgb Conc 33.8 g/dL (32-36); Mean Corpuscular Volume 89.7 fL (80-100); Mean Platelet Volume 10.6 fL (7.4-10.4); Monocytes # (auto) 0.52 K/uL (0.11-0.59); Monocytes % (auto) 8.8 %; Neutrophils # (auto) 3.12 K/uL (1.4-6.5); Platelet Count 228 K/uL (130-400); RDW Coefficient of Variation 13.8 % (11.5-14.5); RDW Standard Deviation 44.8 fL (36.4-46.3); Red Blood Count 4.29 M/uL (4.2-5.4); White Blood Count 5.89 K/uL (4.8-10.8)
[2019-08-31 14:51] LABS: BUN Creatinine Ratio 24.7 (10-20); Blood Urea Nitrogen 17 mg/dl (7-18); C Reactive Protein < 0.29 mg/dl (0-0.29); Calcium 9.1 mg/dl (8.5-10.1); Carbon Dioxide 29 mmol/L (21-32); Chloride 107 mmol/L (98-107); Creatinine Clr Calc Pharmacy 60.8 ml/min; Est GFR (African American) 103.2; Glucose 86 mg/dl (70-99); INR 1.1 (0.9-1.1); Partial Thromboplastin Time 26.6 Seconds (21.0-31.0); Potassium 3.7 mmol/L (3.5-5.1); Prothrombin Time 11.2 Seconds (9.0-12.0); Sodium 141 mmol/L (136-145)
--- NOTE | 2019-09-01 07:27 | Electrocardiogram Report ---
Test Reason : Blood Pressure : / mmHG Vent. Rate : 050 BPM Atrial Rate : 050 BPM P-R Int : 166 ms QRS Dur : 086 ms QT Int : 470 ms P-R-T Axes : 076 080 038 degrees QTc Int : 428 ms Sinus bradycardia Septal infarct , age undetermined Nonspecific ST abnormality Abnormal ECG When compared with ECG of 26-AUG-2018 03:42, Nonspecific T wave abnormality no longer evident in Anterior leads Confirmed by Isiah Aranda ([id number]) on 09/01/2019 7:27:28 AM Referred By: Angel Jennings Confirmed By:Isiah Aranda
[~2019-09-18 08:28] MED LIST changes: -METOCLOPRAMIDE HCL 10 MG TABLET PO SCH; -SCOPOLAMINE 1.5 MG TDSY TD SCH
--- NOTE | 2019-09-18 08:51 | History & Physical Bridge Note ---
Date of Service September 18, 2019 History & Physical Bridge Note I have examined the patient, reviewed the History & Physical and in the interval since the performance of the History & Physical I have noted the following changes of clinical significance: no changes noted
[2019-09-18] MEDS ORDERED: MIDAZOLAM HCL 1 MG/ML 2ML VIAL ONE (09:55)
[2019-09-18] MEDS ORDERED: fentaNYL citrate 100 MCG/2 ML VIAL ONE (09:55)
[2019-09-18] MEDS ORDERED: ATROPINE SULFATE 0.1 MG/ML 10ML SYR IV PRN (11:02)
[2019-09-18] MEDS ORDERED: PROMETHAZINE HCL 12.5 MG in SODIUM CHLORIDE 0.9% 50 ML IV PRN (11:02)
[2019-09-18] MEDS ORDERED: ePHEDrine sulfate 50 MG/ML AMP IV PRN (11:02)
[2019-09-18] MEDS ORDERED: ONDANSETRON INJ 2 MG/ML 2 ML VIAL IV PRN ×2 (11:02→15:50)
[2019-09-18] MEDS ORDERED: fentaNYL citrate 100 MCG/2 ML VIAL IV PRN (11:02)
[2019-09-18] MEDS ORDERED: METOCLOPRAMIDE HCL INJ 5 MG/ML 2 ML VIAL IV PRN ×2 (11:02→15:50)
[2019-09-18] MEDS ORDERED: HYDROmorphone INJ 2 MG/ML SYR/VIAL IV PRN (11:02)
[2019-09-18] MEDS ORDERED: BACITRACIN INJ 50,000 UNIT VIAL ONE (12:07)
[2019-09-18] MEDS ORDERED: EPINEPHrine INJ 1 MG/ML AMP ONE (12:07)
[2019-09-18] MEDS ORDERED: BUPIVACAINE 0.5 % 5 MG/1 ML MPF 30ML VIAL ONE (12:07)
[2019-09-18] MEDS ORDERED: BUPIVACAINE/EPINEPHRINE 0.25% 1:200,000 30 ML VIAL ONE (12:24)
[2019-09-18] MEDS ORDERED: BUPIVACAINE LIPOSOME 1.3% 266 MG/20 ML VIAL ONE (12:24)
[2019-09-18] MEDS ORDERED: SODIUM CHLORIDE 0.9% PF 50 ML VIAL ONE (12:24)
[2019-09-18] MEDS ORDERED: LIDOCAINE HCL 2% 2 ML VIAL/AMP(20MG/ML) INFIL ONE (12:31)
[2019-09-18] MEDS ORDERED: PROPOFOL IV EMULSION 10 MG/ML 20 ML VIAL IV ONE (12:31)
[2019-09-18] MEDS ORDERED: ePHEDrine sulfate 50 MG/ML SYR ONE (13:11)
--- NOTE | 2019-09-18 13:54 | Post Operative Brief Note ---
PG Immediate Post Op with CF Date of Surgery September 18, 2019 Pre & Post Diagnosis Operation Date: 09/18/19 11:10 Pre-Op Diagnosis: Right Knee Degenerative Joint Disease Post-Op Diagnosis: Right Knee Degenerative Joint Disease I identified the patient and participated in the time-out.: Yes Procedure Operation Date: 09/18/19 11:10 Actual Procedures p Right Total Knee Arthroplasty(Right) - Angel Jennings MD Surgeon Angel Jennings MD University Demonstrator Tracey, PAC Estimated Blood Loss 50 Findings Consistent with Post-Op Diagnosis Fluids 1500 cc Specimens Specimen Description: Permanent Solution: A.) Right Knee Bone and Tissue Drains Kwong Catheter (16 swiss 10ml balloon) Anesthesia Type Spinal MAC Complications none Disposition Accompanied Patient To Recovery: No Disposition: Recovery Room
--- NOTE | 2019-09-18 14:22 | XRay Report ---
XR knee RT 1 or 2V routine CLINICAL HISTORY: Surgical Post Op COMPARISON: 03/04/2014 DISCUSSION: There are postsurgical changes of a total right knee arthroplasty and patellar resurfacin g. The femoral and tibial components appear well seated. There are overlying skin cornel. There is g as present within the soft tissues consistent with recent surgery. IMPRESSION: Postsurgical changes of a total right knee arthroplasty. ACT 112: Negative or not required by law. Electronically signed by: Sudhakar Amaya M.D. 09/18/2019 2:20 PM
--- NOTE | 2019-09-18 14:55 | Anesthesiology Progress Note ---
Date of Service September 18, 2019 Anesthesia Post Procedure Vital Signs Vital Signs: Temp Pulse Pulse Resp BP Pulse Ox 09/18/19 14:50 70 21 100/64 93 09/18/19 14:40 57 L 13 103/55 L 97 09/18/19 14:30 36.3 C L 67 16 101/55 L 98 09/18/19 14:20 74 21 115/47 L 98 09/18/19 14:10 74 16 101/55 L 99 09/18/19 14:01 36.3 C L 67 18 107/52 L 100 09/18/19 10:00 71 18 114/62 100 09/18/19 09:32 36.6 C 70 18 127/61 99 Transfer of Care Handoff Completed per policy Notes Mental Status: alert / awake / arousable and participated in evaluation Patient Amnestic to Procedure: Yes Nausea / Vomiting: adequately controlled Pain: adequately controlled Airway Patency, RR, SpO2: stable & adequate BP & HR: stable & adequate Hydration State: stable & adequate Anesthetic Complications: no major complications apparent
[2019-09-18] MEDS ORDERED: bisacodyL 10 MG SUPP PR PRN (15:50)
[2019-09-18] MEDS ORDERED: MAGNESIUM HYDROXIDE SUSP 30 ML UDC PO PRN (15:50)
[2019-09-18] MEDS ORDERED: ALUMINUM/MAGNESIUM SUSP 30 ML UDC PO PRN (15:50)
[2019-09-18] MEDS ORDERED: HYDROmorphone INJ 0.5 MG/0.5 ML SYR IV PRN (15:50)
[2019-09-18] MEDS ORDERED: HYDROmorphone HCL 2 MG TAB PO PRN (15:50)
[2019-09-18] MEDS ORDERED: PREMARIN VAG CRM 14 APPLN/30 GM TUBE PV PRN (15:50)
[2019-09-18] MEDS ORDERED: NALOXONE HCL 0.4 MG/1 ML VIAL/CARP IV PRN (15:50)
[2019-09-18] MEDS: SODIUM CHLORIDE 0.9% 1000ML 1,000 ML IV SCH (16:05)
[2019-09-18] MEDS: Scopolamine CHECK PATCH PLACEMENT SCH (16:07)
[2019-09-18] MEDS: LEVOTHYROXINE SODIUM 75 MCG TABLET PO SCH (16:44)
[2019-09-18] MEDS: ASCORBIC ACID 500 MG TAB PO SCH (16:44)
[2019-09-18] MEDS: FERROUS GLUCONATE 324 MG TAB PO SCH (16:44)
[2019-09-18] MEDS: KETOROLAC TROMETHAMINE 15 MG/ML VIAL IV SCH (17:32)
[2019-09-18] MEDS: ACETAMINOPHEN 500 MG TAB PO SCH (17:43)
--- NOTE | 2019-09-18 18:11 | Operative Report ---
Post Operative Report Pre & Post Diagnosis Operation Date: 09/18/19 11:10 Pre-Op Diagnosis: Right Knee Degenerative Joint Disease Post-Op Diagnosis: Right Knee Degenerative Joint Disease I identified the patient and participated in the time-out.: Yes Procedure Operation Date: 09/18/19 11:10 Actual Procedures p Right Total Knee Arthroplasty(Right) - Angel Jennings MD Surgeon Angel Jennings MD [employer], PAC Estimated Blood Loss 50 Findings Consistent with Post-Op Diagnosis Operative findings revealed advanced right knee DJD. She had extensive grade 4 [id number] disease and eburnation medial femoral condyle medial tibial plateau. She had a fixed varus deformity to her knee. Moderate to large knee joint effusion. Fluids 1500 cc. Specimens Right knee sent for pathology. Drains None. Anesthesia Type Spinal MAC Complications none Disposition Accompanied Patient To Recovery: No Disposition: Recovery Room Indications Patient is a 69-year-old fairly active and healthy female is had a long history of bilateral knee pain discomfort. She failed all conservative care. She underwent a left knee replacement a year ago with an excellent result. She elected proceed with right total knee arthroplasty. My physician assistant professor of biology, Rene Vo, was present for the entire procedure. His presence was critical to positioning, prepping and draping, exposure, retraction, placement of the implants, suturing the wound, and placement of a sterile bandage. Description of Procedure Operative implants consisted of 1. Biomet Vanguard size 62.5 right posterior by femoral component. 2. Biomet size 63 tibial tray. 3. 10 mm posterior stabilized polyethylene insert. 4. 28 x 8 all poly-patella. Patient was taken to the operating identified placed on the operating table supine position protectors were properly padded. IV antibiotics arrived by the anesthesia team. A spinal anesthetic and abductor canal block had provided holding area. Kwong catheter was placed in sterile fashion. Right thigh turn was then placed in the right lower extremities and prepped and draped in usual sterile fashion. The right leg was elevated exsanguinated with use of an Esmarch interspace at 300 mmHg. An anterior and anterior approach of the right knee was then performed through a longitudinal incision centered over the patella. Sharp dissection was cut through subcutaneous tissue down to level the extensor mechanism. A medial parapatellar arthrotomy incision was made. Some subperiosteal dissection was carried out medially. The fat pad was dissected from each patella tendon. The lateral patellofemoral ligament was released. The patella was subluxated laterally and the knee was flexed. The osteophytes were taken off distal femur. The ACL and PCL were then released from distal femur the tibia subluxate anteriorly. The external tibial alignment jig was then placed in the interface the tibia and adjusted 14 mm medially. Proximal tibial cut was made to move about a millimeter bone from most efficient aspect medial till plateau. Some osteophytes were taken off medial and posterior medially. The tibia was sized to a size 63. Attention drawn the femur. The distal femur stem with a sharp drop with intramedullary canal was suction. A right 5 degree valgus cutting guide was placed but this femoral cutting block was pinned in place but distal femoral cut was made to take an additional 3 mm of bone off distal femur. The femur was then sized to a size 62.5. The AP cutting block was pinned parallel to the epicondylar axis which was 4 degrees of external rotation. The anterior cut, anterior chamfer, posterior cut, posterior chamfer cuts were made. Box cutting guide was placed in just slight lateral box cut was made. The knee was flexed. The remnants of the medial lateral menisci were excised. The osteophytes were taken off the posterior aspect the femur. A trial femoral component was placed for the tibial tray was pinned in maximum external rotation and drill and stem punch were used to create defect in proximal to for the tibial tray. The knee was then trialed with a 10 mm insert fit most appropriately. Attention was then drawn to the patella. The patella was cleaned of all soft tissues. Patella thickness measured 21 mm in thickness was cut down to 12. Was sized to a size 28 patella. Locals were drilled for the 28 patella. The lateral osteophyte is moved. Patella button was placed. Knee was taken through range of motion patella tracked nicely with no thumbs test. Attention drawn to place the permanent components. All trial components were removed. A bone plug was placed in the distal femur limit blood loss put a double batch [place] G cement was mixed. Biom[employer]oft Advergamingguard size 62.5 right posterior by femoral component, size 63 tibial tray, a 10 mm posterior box polyethylene insert, and a 28 x 8 all poly-patella were then cemented in place. Knees brought in full extension total cement hardened. Final cement check was then performed. The pericapsular tissues were injected with total 100 cc of combination of 20 cc of Exparel, 30 cc normal saline, 50 cc of quarter percent Marcaine with epinephrine. Patient did receive 1 g tranexamic acid. The turn was then let down for final turn time 53 minutes. Hemostasis assured use electrocautery. The wounds once again irrigated. The extensor mechanism closed with combination 1 PDS suture #1 Vicryl suture in [id number] fashion. Extensor mechanism checked found to be intact and the subcutaneous tissue then closed with 2 Dexon suture in a buried interrupted fashion skin was closed skin cornel. Leg was then cleaned dried and sterile dressed composed Xeroform, 4 x 4's, sterile cast padding, Rudolph bandage were applied. Patient then transferred to the recovery in stable condition. Patient tolerated procedure well no complications. Rene Vo, physician assistant professor of biology, was present for the entire procedure. His presence was critical to appropriate the patient positioning, prepping and draping, exposure, retraction, placing the implants, closing the wound, and placement of the sterile bandage. I attest to the content of the Intraoperative Record and any orders documented therein. Any exceptions are noted below.
[2019-09-18] MEDS: CEFAZOLIN 1000MG 1,000 MG/7.5 ML SYR IV SCH (19:54)
[2019-09-18] MEDS: ASPIRIN 81 MG ECTAB PO SCH (20:17)
[2019-09-18] MEDS: DOCUSATE SODIUM 100 MG CAP PO SCH (20:17)
[2019-09-18] MEDS: PSYLLIUM 58.6% POWDER PACKET PO SCH (20:17)
[2019-09-18] MEDS: SENNA 8.6 MG TAB PO SCH (20:17)
[2019-09-18] MEDS ORDERED: TRANEXAMIC ACID / 0.7% NACL 1,000 MG/100 ML BAG IV SCH (21:00)
[2019-09-18] MEDS: TAPENTADOL HCL ER 50 MG TABCR PO SCH (22:45)
[2019-09-19] MEDS: KETOROLAC TROMETHAMINE 15 MG/ML VIAL IV SCH ×5 (00:10→23:44)
[2019-09-19] MEDS: SODIUM CHLORIDE 0.9% 1000ML 1,000 ML IV SCH (01:39)
[2019-09-19] MEDS: CEFAZOLIN 1000MG 1,000 MG/7.5 ML SYR IV SCH (03:24)
[2019-09-19] MEDS: ACETAMINOPHEN 500 MG TAB PO SCH ×3 (05:26→21:58)
[2019-09-19] MEDS: LEVOTHYROXINE SODIUM 75 MCG TABLET PO SCH (06:02)
[2019-09-19 06:21] LABS: Hematocrit (blood only) 34.3 % (37-47); Mean Corpuscular Hemoglobin 29.1 pg (25-34); Mean Corpuscular Hgb Conc 32.1 g/dL (32-36); Mean Corpuscular Volume 90.7 fL (80-100); Mean Platelet Volume 10.4 fL (7.4-10.4); Platelet Count 178 K/uL (130-400); RDW Coefficient of Variation 14.2 % (11.5-14.5); RDW Standard Deviation 46.9 fL (36.4-46.3); Red Blood Count 3.78 M/uL (4.2-5.4); White Blood Count 8.63 K/uL (4.8-10.8)
[2019-09-19 06:55] LABS: BUN Creatinine Ratio 19.5 (10-20); Calcium 8.5 mg/dl (8.5-10.1); Creatinine Clr Calc Pharmacy 68.7 ml/min; Est GFR (African American) 107.4; Est GFR (Non-African American) 92.7; Potassium 3.9 mmol/L (3.5-5.1)
[2019-09-19] MEDS ORDERED: [UNRECOGNIZED DRUG - OTHER] TOP SCH (09:00)
[2019-09-19] MEDS ORDERED: HERB LAX PO SCH (09:00)
[2019-09-19] MEDS: Scopolamine CHECK PATCH PLACEMENT SCH ×4 (09:18→23:44)
[2019-09-19] MEDS: LACTOBACILLUS ACIDOPHILUS (FLORANEX) TAB PO SCH (09:22)
[2019-09-19] MEDS: OMEGA-3 (PURIFIED FISH OIL) 1 GM CAP PO SCH (09:22)
[2019-09-19] MEDS: ASPIRIN 81 MG ECTAB PO SCH ×2 (09:23→21:58)
[2019-09-19] MEDS: ASCORBIC ACID 500 MG TAB PO SCH ×2 (09:23→16:06)
[2019-09-19] MEDS: MULTIVITAMIN TAB PO SCH (09:24)
[2019-09-19] MEDS: DOCUSATE SODIUM 100 MG CAP PO SCH ×2 (09:24→21:58)
[2019-09-19] MEDS: PSYLLIUM 58.6% POWDER PACKET PO SCH ×2 (09:24→22:44)
[2019-09-19] MEDS: FERROUS GLUCONATE 324 MG TAB PO SCH ×2 (09:25→16:06)
[2019-09-19] MEDS: TAPENTADOL HCL ER 50 MG TABCR PO SCH ×2 (09:30→21:58)
--- NOTE | 2019-09-19 16:43 | Progress Notes ---
DATE: 09/19/2019 SUBJECTIVE: A 69-year-old female postop day 1 from right knee replacement. She is doing pretty well. She has been a little hypotensive and got a little bit nauseated when she got out of bed earlier. No chest pain or shortness of breath. Pain seems to be reasonably well controlled. OBJECTIVE: VITAL SIGNS: Temperature 36.5. Vital signs stable. GENERAL: Shows a pleasant, middle-aged female. She is sitting up in her bed and looks comfortable. She is talking to her . EXTREMITIES: Examination of the right leg reveals the leg to be well aligned. Dressing is clean, dry and intact. She can dorsiflex and plantarflex her foot appropriately. She is neurologically intact. LABORATORY DATA: Hemoglobin is 11.0. Hematocrit 34.3. Electrolytes are stable. ASSESSMENT: A 69-year-old white female postoperative day 1 from a right knee replacement, doing reasonably well. She is a little hypotensive when she got up, which is not too unusual. This should be better by tomorrow. Pain is reasonably well controlled. PLAN: 1. DVT prophylaxis including thigh-high TEDs, SCDs, and aspirin twice a day. 2. PT/OT. Weight bear as tolerated. Right total knee protocol. 3. Pain control. Doing reasonably well with current pain regimen. 4. Disposition: She is planning to be discharged home with some home health once adequately recovered and medically stable.
[2019-09-19] MEDS: SENNA 8.6 MG TAB PO SCH (21:58)
[2019-09-20] MEDS: ACETAMINOPHEN 500 MG TAB PO SCH ×2 (05:44→13:42)
[2019-09-20] MEDS: LEVOTHYROXINE SODIUM 75 MCG TABLET PO SCH (05:44)
[2019-09-20] MEDS: KETOROLAC TROMETHAMINE 15 MG/ML VIAL IV SCH ×2 (05:44→12:29)
--- NOTE | 2019-09-20 08:48 | Progress Notes ---
DATE: 09/20/2019 SUBJECTIVE: A 69-year-old white female postop day 2 from a right knee replacement. She is doing much better this morning. She seems to be much less anxious. Pain is controlled. Had a pretty good night. No chest pain or shortness of breath. Not feeling dizzy or lightheaded. OBJECTIVE: VITAL SIGNS: Temperature 36.6. Vital signs stable. GENERAL: Shows a pleasant, middle-aged female. She is lying in bed, looks pretty comfortable. EXTREMITIES: Examination of the right leg reveals the leg to be well aligned. Dressing is clean, dry and intact. No significant drainage. Calf is soft and supple. She is neurologically intact. ASSESSMENT: A 69-year-old white female postop day 2 from right knee replacement, doing pretty well. Doing much better this morning. Anxiety seems to be improved. Her pain is controlled. PLAN: 1. DVT prophylaxis including thigh-high TEDs, SCDs, and aspirin twice a day. 2. PT/OT. Weight bear as tolerated. Right total knee protocol. 3. Pain control, doing well with current pain regimen. 4. Disposition: Plan to discharge to home with some home health later today.
[2019-09-20] MEDS: Scopolamine CHECK PATCH PLACEMENT SCH (09:27)
[2019-09-20] MEDS: DOCUSATE SODIUM 100 MG CAP PO SCH (09:28)
[2019-09-20] MEDS: TAPENTADOL HCL ER 50 MG TABCR PO SCH (09:29)
[2019-09-20] MEDS: PSYLLIUM 58.6% POWDER PACKET PO SCH (09:29)
[2019-09-20] MEDS: MULTIVITAMIN TAB PO SCH (09:30)
[2019-09-20] MEDS: OMEGA-3 (PURIFIED FISH OIL) 1 GM CAP PO SCH (09:30)
[2019-09-20] MEDS: LACTOBACILLUS ACIDOPHILUS (FLORANEX) TAB PO SCH (09:30)
[2019-09-20] MEDS: ASCORBIC ACID 500 MG TAB PO SCH (09:31)
[2019-09-20] MEDS: FERROUS GLUCONATE 324 MG TAB PO SCH (09:31)
[2019-09-20] MEDS: ASPIRIN 81 MG ECTAB PO SCH (09:31)
--- NOTE | 2019-09-21 15:20 | Discharge Summary ---
Date of Service September 21, 2019 Admission HPI Per Admitting Provider Well documented in the admission H & P Admission Exam (Per Admitting) Constitutional Well documented in the admission H & P Discharge Data Consultations 09/18/19 15:50 Consult Case Management - Discharge Planning Routine Procedures Performed Operation Date: 09/18/19 11:10 Actual Procedures p Right Total Knee Arthroplasty(Right) - Angel Jennings MD Hospital Course (1) Status post total right knee replacement: This patient is a 69 year old female admitted on 09/18/19 and underwent to arvin knee arthroplasty. She tolerated the procedure well and there were no complications. Transferred to the PACU post op and later to the orthopedic floor for further care. She was given ancef for antibiotic prophylaxis. She was also given ED stockings, SCDs, and aspirin for DVT prophylaxis. Hemoglobin, hematocrit, and vital signs were monitored during her hospital stay and remained stable. She did have some hypotension that did resolve. Did not require any blood transfusions. There were no complications during her hospital stay. By post op day #2 the patient was tolerating a regular diet, pain was reasonably controlled with oral pain medicine, and she was participating in physical therapy. On post op day #2 the patient was discharged home and set up with home health care. She was given printed discharge instructions including prescriptions for extra strength tylenol, aspirin, iron supplement and hydromorphone. Continue physical therapy, weight bearing as tolerated. Continue ED stockings. Follow up approximately 2 weeks post op or sooner if there are problems or concerns. Coding Level of Care Code None Diagnoses Status post total right knee replacement Z96.651
== END 2019-09-20 13:56 | disposition home health service (06) ==
LOC: 3W 08:28 → ASU 08:28